=== PATIENT | male | born 1950 | race African-American/Black ===

== ENCOUNTER 2021-09-06 13:35 | Inpatient (IN) | payer MEDICARE, MEDICAID ==
[~2021-09-06] VITALS: Ht 182.9 cm; Wt 72.1 kg
[2021-09-06] MEDS ORDERED: SODIUM CHLORIDE 0.9% 1,000 ML IV ONE (15:15)
[2021-09-06 15:44] LABS: HEMATOCRIT. 44.7 % (42.0-52.0); HEMOGLOBIN. 14.7 g/dL (14.0-18.0); MEAN CORPUSCULAR HEMOGLOBIN 29.4 pg (28.0-32.0); MEAN CORPUSCULAR VOLUME 89.6 fL (80.0-94.0); MEAN PLATELET VOLUME 7.4 fl (7.4-10.4); PLATELET 352 x1000/uL (130-400); RED BLOOD CELL COUNT 4.99 mill/uL (4.7-6.1)
[2021-09-06 15:54] LABS: CHLORIDE 106 mEq/L (98-107)
[2021-09-06 16:49] LABS: PLATELET ESTIMATE NORMAL
[2021-09-06] MEDS ORDERED: FUROSEMIDE 20MG TABLET PO ONE (17:15)
[2021-09-06 21:36] VITALS: BP 146/86
[2021-09-06 22:00] VITALS: BP 146/86
[2021-09-06] MEDS ORDERED: MORP15TA54 MT (22:19)
[2021-09-06] MEDS ORDERED: GABA-529 PO (22:19)
[2021-09-06] MEDS ORDERED: HYDROCODONE/ACETAMINOPHEN 5/325MG TABLET PO PRN (22:45)
[2021-09-06] MEDS ORDERED: ONDANSETRON HCL 4MG/2ML INJ IV PRN (22:45)
[2021-09-06] MEDS ORDERED: ZOLPIDEM TARTRATE 5MG TABLET PO PRN (22:45)
[2021-09-06] MEDS ORDERED: CLONIDINE 0.1MG TABLET PO PRN (22:45)
[2021-09-06] MEDS ORDERED: PNEUMOCOCCAL 23-VAL P-SAC VAC 0.5 ML IM ONE (23:30)
[2021-09-07] VITALS (14 sets, daily range): BP systolic 125–168; BP diastolic 69–101
[2021-09-07 02:04] LABS: ETHANOL BLOOD < 10 mg/dL
[2021-09-07 02:21] LABS: CREATINE KINASE 2359 IU/L (39-308)
[2021-09-07 08:26] LABS: HEMATOCRIT. 41.7 % (42.0-52.0); HEMOGLOBIN. 13.8 g/dL (14.0-18.0); MEAN CORPUSCULAR VOLUME 90.2 fL (80.0-94.0); MEAN PLATELET VOLUME 7.6 fl (7.4-10.4); PLATELET 317 x1000/uL (130-400); RED BLOOD CELL COUNT 4.62 mill/uL (4.7-6.1); RED CELL DISTRIBUTION WIDTH 15.2 % (11.6-14.6)
[2021-09-07] MEDS: ENOXAPARIN 40MG/0.4ML SYR SUBCUT SCH (08:31)
[2021-09-07] MEDS ORDERED: GABAPENTIN 100MG CAPSULE PO SCH (09:00)
[2021-09-07 09:09] LABS: CHLORIDE 107 mEq/L (98-107)
[2021-09-07 09:17] LABS: LDL CHOLESTEROL 50 mg/dL (5-100)
[2021-09-07 09:18] LABS: CREATINE KINASE MB FRACTION 11.4 ng/mL (0.5-3.6); HDL CHOLESTEROL 58 mg/dL (40-59)
[2021-09-07 09:30] LABS: CLARITY URINE CLEAR (CLEAR); COLOR URINE DARK YELLOW (YELLOW); KETONES URINE 2+ (NEGATIVE); LEUKOCYTE ESTERASE URINE NEGATIVE (NEGATIVE); NITRITE URINE NEGATIVE (NEGATIVE); OCCULT BLOOD URINE NEGATIVE (NEGATIVE); PROTEIN URINE NEGATIVE (NEGATIVE); SPECIFIC GRAVITY URINE 1.025 (1.005-1.030)
[2021-09-07 09:37] LABS: CREATINE KINASE 1847 IU/L (39-308)
[2021-09-07 10:10] LABS: *AMPHETAMINES SCREEN URINE NEGATIVE (NEGATIVE); *BARBITURATES SCREEN URINE NEGATIVE (NEGATIVE); *BENZODIAZEPINES SCREEN URINE NEGATIVE (NEGATIVE); *COCAINE SCREEN URINE NEGATIVE (NEGATIVE); METHADONE URINE SCREEN NEGATIVE (NEGATIVE); OPIATES URINE SCREEN PRESUMTIVE POSITIVE (NEGATIVE)
[2021-09-07 10:11] LABS: CANNABINOID URINE SCREEN NEGATIVE (NEGATIVE); PHENCYCLIDINE URINE SCREEN NEGATIVE (NEGATIVE)
[2021-09-07] MEDS: GABAPENTIN 300MG CAPSULE PO SCH ×2 (13:39→21:17)
[2021-09-07] MEDS ORDERED: NALOXONE HCL 0.4 MG/ML 1ML VIAL IV PRN (14:00)
[2021-09-07 17:27] LABS: CREATINE KINASE MB FRACTION 7.6 ng/mL (0.5-3.6)
[2021-09-07 17:38] LABS: CREATINE KINASE 1380 IU/L (39-308)
[2021-09-07] MEDS: SODIUM CHLORIDE 0.9% 1,000 ML IV SCH ×2 (17:41→23:45)
[2021-09-07] MEDS: MORPHINE SULFATE 15MG TABLET SR PO SCH (21:24)
[2021-09-07 23:28] LABS: PLATELET ESTIMATE NORMAL
[2021-09-08] VITALS (7 sets, daily range): BP systolic 106–163; BP diastolic 57–83
[2021-09-08] MEDS: GABAPENTIN 300MG CAPSULE PO SCH ×3 (05:40→21:36)
[2021-09-08 07:17] LABS: BASOPHILS % 0.6 % (0.0-2.0); EOSINOPHILS % 0.8 % (0.0-5.0); HEMOGLOBIN. 13.6 g/dL (14.0-18.0); LYMPHOCYTES % 10.3 % (20.0-50.0); MEAN CORPUSCULAR HEMOGLOBIN 30.5 pg (28.0-32.0); MEAN CORPUSCULAR VOLUME 89.8 fL (80.0-94.0); MEAN PLATELET VOLUME 7.7 fl (7.4-10.4); MONOCYTES % 9.2 % (2.0-8.0); NEUTROPHILS % 79.1 % (40.0-76.0); PLATELET 308 x1000/uL (130-400); RED BLOOD CELL COUNT 4.46 mill/uL (4.7-6.1)
[2021-09-08 07:29] LABS: CHLORIDE 108 mEq/L (98-107)
[2021-09-08] MEDS: ENOXAPARIN 40MG/0.4ML SYR SUBCUT SCH (08:48)
[2021-09-08] MEDS: MORPHINE SULFATE 15MG TABLET SR PO SCH ×2 (08:48→21:35)
[2021-09-08] MEDS: SODIUM CHLORIDE 0.9% 1,000 ML IV SCH ×2 (08:49→19:45)
[2021-09-09] VITALS: BP 139/79
[2021-09-09 03:56] VITALS: BP 133/81
[2021-09-09] MEDS: GABAPENTIN 300MG CAPSULE PO SCH ×3 (05:05→21:07)
[2021-09-09] MEDS: SODIUM CHLORIDE 0.9% 1,000 ML IV SCH ×3 (05:45→23:57)
[2021-09-09 08:24] VITALS: BP 144/94
[2021-09-09] MEDS: ENOXAPARIN 40MG/0.4ML SYR SUBCUT SCH (09:11)
[2021-09-09] MEDS: MORPHINE SULFATE 15MG TABLET SR PO SCH ×2 (09:12→21:07)
[2021-09-09 12:00] VITALS: BP 147/82
[2021-09-09 16:34] VITALS: BP 142/78
[2021-09-09 20:00] VITALS: BP 152/86
[2021-09-09 20:38] LABS: INR 1.1; PROTHROMBIN TIME 11.9 sec (9.6-11.0)
[2021-09-09] MEDS: DEXAMETHASONE 4MG/ML 1ML VIAL IV SCH (23:27)
[2021-09-10] VITALS (11 sets, daily range): BP systolic 124–150; BP diastolic 67–90
[2021-09-10] MEDS: GABAPENTIN 300MG CAPSULE PO SCH ×3 (05:27→21:34)
[2021-09-10] MEDS: DEXAMETHASONE 4MG/ML 1ML VIAL IV SCH ×3 (05:27→18:16)
[2021-09-10] MEDS: MORPHINE SULFATE 15MG TABLET SR PO SCH ×3 (09:23→21:36)
[2021-09-10] MEDS ORDERED: HYDROCODONE/ACETAMINOPHEN 10/325MG TABLET PO PRN (09:30)
[2021-09-10] MEDS: ENOXAPARIN 40MG/0.4ML SYR SUBCUT SCH (10:35)
[2021-09-10] MEDS: SODIUM CHLORIDE 0.9% 1,000 ML IV SCH ×2 (11:34→21:36)
[2021-09-10] MEDS ORDERED: IPRATROPIUM/ALBUTEROL 0.5-3(2.5)MG/3ML NEB HHN PRN (14:30)
[2021-09-10] MEDS ORDERED: GADOTERATE MEGLUMINE 5 MMOL/10 ML VIAL IV ONE (17:19)
[2021-09-11] VITALS (53 sets, daily range): BP systolic 97–168; BP diastolic 44–74
[2021-09-11] MEDS: DEXAMETHASONE 4MG/ML 1ML VIAL IV SCH ×4 (00:37→17:39)
[2021-09-11] MEDS: GABAPENTIN 300MG CAPSULE PO SCH ×3 (05:40→22:00)
[2021-09-11] MEDS ORDERED: LIDOCAINE HCL/EPINEPHRINE 1%-EPI 1:100,000 20 ML VIAL ONE (05:56)
[2021-09-11] MEDS ORDERED: THROMBIN (BOVINE) 5000 UNITS/VIAL TOP ONE (05:57)
[2021-09-11] MEDS ORDERED: GENTAMICIN SULF 40MG/ML 2ML VIAL ONE (06:23)
[2021-09-11] MEDS ORDERED: PROPOFOL 10MG/ML 100ML 100 ML IV ONE (06:55)
[2021-09-11] MEDS ORDERED: ALBUMIN HUMAN 12.5G/250ML (5%) IV ONE (06:55)
[2021-09-11] MEDS ORDERED: NICARDIPINE 40MG/200ML PREMIX 200 ML IV ONE ×2 (06:56→06:57)
[2021-09-11] MEDS ORDERED: ACETAMINOPHEN 500MG TABLET ONE (07:03)
[2021-09-11] MEDS ORDERED: STERILE WATER FOR INJECTION 10ML VIAL ONE (07:27)
[2021-09-11] MEDS ORDERED: PHENYLEPHRINE HCL 10 MG/ML 1ML (IV VIAL) IV ONE (07:27)
[2021-09-11] MEDS ORDERED: MORPHINE SULFATE 2 MG/ML CPJ (NOT FOR IM USE) IV PRN (07:30)
[2021-09-11] MEDS ORDERED: FENTANYL CITRATE/PF 50MCG/ML 2ML VIAL ONE (07:33)
[2021-09-11] MEDS ORDERED: MAGNESIUM SULFATE 5GM/10ML VIAL IV ONE (07:43)
[2021-09-11] MEDS ORDERED: MAGNESIUM 2 G PREMIX 50 ML IV ONE (07:45)
[2021-09-11] MEDS ORDERED: CEFAZOLIN SODIUM 1000MG/VIAL ONE (07:58)
[2021-09-11] MEDS ORDERED: KETAMINE HCL 50 MG/ML 10ML ONE (08:12)
[2021-09-11] MEDS ORDERED: EPHEDRINE SULFATE 50MG/ML VIAL ONE (08:24)
[2021-09-11] MEDS ORDERED: HYDRALAZINE 20MG/ML VIAL ONE (08:42)
[2021-09-11] MEDS: MORPHINE SULFATE 15MG TABLET SR PO SCH ×2 (09:00→20:59)
[2021-09-11] MEDS ORDERED: ONDANSETRON HCL 4MG/2ML INJ ONE (09:06)
[2021-09-11] MEDS ORDERED: METOCLOPRAMIDE HCL 10MG/2ML VIAL ONE (09:06)
[2021-09-11] MEDS ORDERED: DEXAMETHASONE 4MG/ML 1ML VIAL ONE (09:13)
[2021-09-11] MEDS ORDERED: GLYCOPYRROLATE 0.2 MG/ML 2ML VIAL ONE (09:21)
[2021-09-11] MEDS ORDERED: NEOSTIGMINE METHYLSULFATE 1MG/ML 10 ML VIAL ONE (09:22)
[2021-09-11] MEDS: NICARDIPINE 100 MG in SODIUM CHLORIDE 0.9% 60 ML IV PRN ×2 (10:15→21:39)
[2021-09-11] MEDS: DEXT 5%/LACTATED RINGERS 1,000 ML IV SCH ×2 (10:16→17:39)
[2021-09-11] MEDS ORDERED: NALOXONE INJ IV PRN (10:45)
[2021-09-11] MEDS ORDERED: DIPHENHYDRAMINE INJ IV PRN (10:45)
[2021-09-11] MEDS ORDERED: ONDANSETRON INJ IV PRN (10:45)
[2021-09-11] MEDS ORDERED: HYDROMORPHONE PCA 10MG/50ML IV PRN (10:45)
[2021-09-11] MEDS: CEFAZOLIN 1000MG PREMIX 50 ML IV SCH ×2 (13:07→21:39)
[2021-09-11] MEDS ORDERED: CEFAZOLIN SODIUM 1000MG/VIAL IV SCH (14:00)
[2021-09-11] MEDS: THROAT LOZENGES-BENZOCAINE/MENTH/CETYLPYRD CL LOZENGES MM PRN (14:21)
[2021-09-11 15:11] LABS: HEMATOCRIT. 39.3 % (42.0-52.0); HEMOGLOBIN. 12.7 g/dL (14.0-18.0); MEAN CORPUSCULAR HEMOGLOBIN 28.8 pg (28.0-32.0); MEAN CORPUSCULAR VOLUME 89.4 fL (80.0-94.0); MEAN PLATELET VOLUME 7.6 fl (7.4-10.4); PLATELET 346 x1000/uL (130-400); RED CELL DISTRIBUTION WIDTH 15.1 % (11.6-14.6)
[2021-09-11 15:24] LABS: CHLORIDE 108 mEq/L (98-107)
[2021-09-11 15:58] LABS: PLATELET ESTIMATE NORMAL
[2021-09-12] VITALS (90 sets, daily range): BP systolic 95–154; BP diastolic 51–82
[2021-09-12] MEDS: DEXAMETHASONE 4MG/ML 1ML VIAL IV SCH ×3 (01:16→11:01)
[2021-09-12] MEDS: THROAT LOZENGES-BENZOCAINE/MENTH/CETYLPYRD CL LOZENGES MM PRN ×3 (01:19→13:07)
[2021-09-12] MEDS: DEXT 5%/LACTATED RINGERS 1,000 ML IV SCH ×3 (04:20→22:45)
[2021-09-12] MEDS: GABAPENTIN 300MG CAPSULE PO SCH ×3 (06:00→21:23)
[2021-09-12] MEDS: CEFAZOLIN 1000MG PREMIX 50 ML IV SCH ×3 (06:08→21:23)
[2021-09-12] MEDS: AMLODIPINE 10MG TABLET PO SCH (08:46)
[2021-09-12] MEDS: MORPHINE SULFATE 15MG TABLET SR PO SCH ×2 (08:47→21:24)
[2021-09-12] MEDS: MORPHINE SULFATE 2 MG/ML CPJ (NOT FOR IM USE) IV PRN ×3 (09:20→18:58)
[2021-09-12] MEDS: HYDRALAZINE HCL 25MG TABLET PO SCH ×2 (11:01→18:58)
[2021-09-13] VITALS (36 sets, daily range): BP systolic 0–178; BP diastolic 0–88
[2021-09-13] MEDS: MORPHINE SULFATE 2 MG/ML CPJ (NOT FOR IM USE) IV PRN (01:11)
[2021-09-13] MEDS: HYDRALAZINE HCL 25MG TABLET PO SCH ×3 (02:33→17:23)
[2021-09-13] MEDS: CEFAZOLIN 1000MG PREMIX 50 ML IV SCH ×3 (06:13→21:19)
[2021-09-13] MEDS: GABAPENTIN 300MG CAPSULE PO SCH ×3 (06:13→21:17)
[2021-09-13] MEDS: THROAT LOZENGES-BENZOCAINE/MENTH/CETYLPYRD CL LOZENGES MM PRN ×2 (07:04→16:46)
[2021-09-13] MEDS: AMLODIPINE 10MG TABLET PO SCH (09:00)
[2021-09-13] MEDS: MORPHINE SULFATE 15MG TABLET SR PO SCH ×2 (09:35→21:18)
[2021-09-13] MEDS: DEXT 5%/LACTATED RINGERS 1,000 ML IV SCH ×2 (13:27→21:19)
[2021-09-13] MEDS ORDERED: NALOXONE HCL 0.4MG/ML VIAL IV PRN (16:15)
[2021-09-14] VITALS (7 sets, daily range): BP systolic 102–131; BP diastolic 56–72
[2021-09-14] MEDS: HYDRALAZINE HCL 25MG TABLET PO SCH ×2 (01:57→11:05)
[2021-09-14] MEDS: MORPHINE SULFATE 2 MG/ML CPJ (NOT FOR IM USE) IV PRN ×2 (05:04→17:19)
[2021-09-14] MEDS: DEXT 5%/LACTATED RINGERS 1,000 ML IV SCH ×2 (05:29→16:27)
[2021-09-14] MEDS: CEFAZOLIN 1000MG PREMIX 50 ML IV SCH ×2 (05:29→14:38)
[2021-09-14] MEDS: GABAPENTIN 300MG CAPSULE PO SCH ×2 (05:53→14:38)
[2021-09-14 07:28] LABS: BASOPHILS % 0.4 % (0.0-2.0); EOSINOPHILS % 0.6 % (0.0-5.0); HEMOGLOBIN. 12.6 g/dL (14.0-18.0); LYMPHOCYTES % 10.2 % (20.0-50.0); MEAN CORPUSCULAR HEMOGLOBIN 29.4 pg (28.0-32.0); MEAN CORPUSCULAR VOLUME 88.8 fL (80.0-94.0); MEAN PLATELET VOLUME 8.1 fl (7.4-10.4); MONOCYTES % 8.2 % (2.0-8.0); NEUTROPHILS % 80.6 % (40.0-76.0); PLATELET 311 x1000/uL (130-400); RED BLOOD CELL COUNT 4.27 mill/uL (4.7-6.1); RED CELL DISTRIBUTION WIDTH 15.1 % (11.6-14.6)
[2021-09-14 07:35] LABS: CHLORIDE 107 mEq/L (98-107)
[2021-09-14] MEDS: AMLODIPINE 10MG TABLET PO SCH (08:36)
[2021-09-14] MEDS: MORPHINE SULFATE 15MG TABLET SR PO SCH (08:37)
[2021-09-14] MEDS: THROAT LOZENGES-BENZOCAINE/MENTH/CETYLPYRD CL LOZENGES MM PRN (11:06)
[2021-09-14] MEDS ORDERED: GABA-290 PO (22:29)
[2021-09-14] MEDS ORDERED: MORP60TA6 PO (22:29)
== END 2021-09-14 18:17 | DRG 471 ==
LOC: ER 13:47 → 5EST 17:41 → ENRESERV 19:59 → MICUSO 09-11 10:04 → 7EST 09-13 12:44
PROVIDERS: ADMIT Internal Medicine; ATTEND Internal Medicine
PROC: 0RG10A0 Fusion of Cervical Vertebral Joint with Interbody Fusion Device, Anterior Approach, Anterior Column, Open Approach (ICD-10-PCS; principal; 2021-09-06)
PROC: 0RB30ZZ Excision of Cervical Vertebral Disc, Open Approach (ICD-10-PCS; 2021-09-06)
PROC: 00NW0ZZ Release Cervical Spinal Cord, Open Approach (ICD-10-PCS; 2021-09-06)
DX: M48.02 Spinal stenosis, cervical region (principal); S14.104A Unspecified injury at C4 level of cervical spinal cord, initial encounter; G82.50 Quadriplegia, unspecified; I63.9 Cerebral infarction, unspecified; M62.82 Rhabdomyolysis; C34.91 Malignant neoplasm of unspecified part of right bronchus or lung; G95.20 Unspecified cord compression; S51.011A Laceration without foreign body of right elbow, initial encounter; T73.0XXA Starvation, initial encounter; D72.829 Elevated white blood cell count, unspecified; F41.9 Anxiety disorder, unspecified; M19.90 Unspecified osteoarthritis, unspecified site; R74.01 Elevation of levels of liver transaminase levels; I10 Essential (primary) hypertension; S70.02XA Contusion of left hip, initial encounter; R74.8 Abnormal levels of other serum enzymes; M48.061 Spinal stenosis, lumbar region without neurogenic claudication; R26.89 Other abnormalities of gait and mobility; G89.4 Chronic pain syndrome; R53.81 Other malaise; Z20.822 Contact with and (suspected) exposure to COVID-19; D64.9 Anemia, unspecified; M50.322 Other cervical disc degeneration at C5-C6 level; I16.0 Hypertensive urgency; R13.10 Dysphagia, unspecified; E80.6 Other disorders of bilirubin metabolism; G62.9 Polyneuropathy, unspecified; W18.39XA Other fall on same level, initial encounter; Y93.89 Activity, other specified; Y92.89 Other specified places as the place of occurrence of the external cause; Y99.8 Other external cause status; Z79.891 Long term (current) use of opiate analgesic; Z79.899 Other long term (current) drug therapy; Z92.21 Personal history of antineoplastic chemotherapy; Z82.49 Family history of ischemic heart disease and other diseases of the circulatory system
CPT/HCPCS: 36415; 70544; 70549; 70551; 70553; 71045; 72040; 72141; 72146; 72148; 76000; 80048; 80053; 80061; 80076; 80305; 80320; 81003; 82040; 82248; 82550; 82553; 82962; 83036; 83605; 83735; 83880; 84134; 84145; 84443; 84484; 85025; 86850; 86900; 87426; 88311; 90732; 92610; 93005; 93306; 93970; 95863; 95925; 95926; 95928; 95929; 97116; 97162; 97164; 97166; 97168; 97530; 99285; A4216; A6261; A9577; C1713; J0360; J0690; J1100; J1200; J1580; J1650; J2270; J2370; J2405; J2704; J2710; J2765; J3010; J3475; J3490; J7030; J7040; J7050; J7121; L0172; P9041; C1762; G0480

== ENCOUNTER 2021-09-14 18:26 | Inpatient (IN) | payer MEDICARE, MEDICAID ==
[~2021-09-14] VITALS: Ht 182.9 cm; Wt 56.2 kg
[~2021-09-14 18:26] MED LIST: GABA-529 PO; MORP15TA54 MT
[2021-09-14 19:26] VITALS: BP 135/69
[2021-09-14 19:30] VITALS: BP 111/70
[2021-09-14] MEDS ORDERED: MORPHINE SULFATE 2 MG/ML CPJ (NOT FOR IM USE) IV PRN (19:45)
[2021-09-14] MEDS ORDERED: IPRATROPIUM/ALBUTEROL 0.5-3(2.5)MG/3ML NEB HHN PRN (19:45)
[2021-09-14] MEDS ORDERED: CLONIDINE 0.1MG TABLET PO PRN (19:45)
[2021-09-14] MEDS ORDERED: NALOXONE HCL 0.4 MG/ML 1ML VIAL IV PRN (19:45)
[2021-09-14 20:00] VITALS: BP 111/70
[2021-09-14] MEDS ORDERED: CEFAZOLIN 1000MG PREMIX 50 ML IV SCH (21:00)
[2021-09-14] MEDS: HYDRALAZINE HCL 25MG TABLET PO SCH (21:25)
[2021-09-14] MEDS: GABAPENTIN 300MG CAPSULE PO SCH (21:25)
[2021-09-14] MEDS: CEFAZOLIN 1000MG PREMIX 50 ML IV SCH (21:26)
[2021-09-14] MEDS: MORPHINE SULFATE 15MG TABLET SR PO SCH (21:26)
[2021-09-14] MEDS: THROAT LOZENGES-BENZOCAINE/MENTH/CETYLPYRD CL LOZENGES MM PRN (22:12)
[2021-09-14] MEDS ORDERED: GABA-290 PO (22:29)
[2021-09-14] MEDS ORDERED: MORP60TA6 PO (22:29)
[2021-09-15] MEDS: GABAPENTIN 300MG CAPSULE PO SCH ×3 (05:46→21:38)
[2021-09-15] MEDS: CEFAZOLIN 1000MG PREMIX 50 ML IV SCH ×3 (05:46→21:19)
[2021-09-15] MEDS: HYDRALAZINE HCL 25MG TABLET PO SCH ×3 (05:47→21:38)
[2021-09-15 08:00] VITALS: BP 90/50
[2021-09-15] MEDS: AMLODIPINE 10MG TABLET PO SCH (08:40)
[2021-09-15] MEDS: MORPHINE SULFATE 15MG TABLET SR PO SCH ×3 (08:42→21:21)
[2021-09-15 10:28] LABS: BASOPHILS % 0.1 % (0.0-2.0); EOSINOPHILS % 4.2 % (0.0-5.0); HEMATOCRIT. 38.5 % (42.0-52.0); HEMOGLOBIN. 12.6 g/dL (14.0-18.0); LYMPHOCYTES % 12.8 % (20.0-50.0); MEAN CORPUSCULAR HEMOGLOBIN 29.4 pg (28.0-32.0); MEAN CORPUSCULAR VOLUME 90.2 fL (80.0-94.0); MEAN PLATELET VOLUME 7.2 fl (7.4-10.4); MONOCYTES % 10.5 % (2.0-8.0); NEUTROPHILS % 72.4 % (40.0-76.0); PLATELET 333 x1000/uL (130-400); RED BLOOD CELL COUNT 4.27 mill/uL (4.7-6.1); RED CELL DISTRIBUTION WIDTH 15.1 % (11.6-14.6)
[2021-09-15 10:46] LABS: CHLORIDE 105 mEq/L (98-107)
[2021-09-15 20:00] VITALS: BP 124/64
[2021-09-15] MEDS: THROAT LOZENGES-BENZOCAINE/MENTH/CETYLPYRD CL LOZENGES MM PRN (21:38)
[2021-09-16] MEDS: HYDROMORPHONE HCL 4MG TABLET PO PRN (04:21)
[2021-09-16] MEDS: HYDRALAZINE HCL 25MG TABLET PO SCH ×3 (05:35→21:42)
[2021-09-16] MEDS: GABAPENTIN 300MG CAPSULE PO SCH ×3 (05:36→21:42)
[2021-09-16] MEDS: CEFAZOLIN 1000MG PREMIX 50 ML IV SCH ×2 (05:36→21:42)
[2021-09-16] MEDS: THROAT LOZENGES-BENZOCAINE/MENTH/CETYLPYRD CL LOZENGES MM PRN ×2 (05:36→21:48)
[2021-09-16] MEDS ORDERED: NA PHOS,M-B/NA PHOS,DI-BA ENEMA 118ML PR PRN (07:45)
[2021-09-16 08:00] VITALS: BP 126/66
[2021-09-16] MEDS: BISACODYL 5MG TABLET PO SCH (08:43)
[2021-09-16] MEDS: AMLODIPINE 10MG TABLET PO SCH (08:44)
[2021-09-16] MEDS: MORPHINE SULFATE 15MG TABLET SR PO SCH ×2 (08:47→21:44)
[2021-09-16] MEDS: LACTULOSE 20G/30ML UDC PO SCH ×2 (09:48→13:27)
[2021-09-16] MEDS ORDERED: LACTULOSE 20G/30ML UDC PO SCH (12:00)
[2021-09-16 16:02] LABS: BASOPHILS % 0.3 % (0.0-2.0); EOSINOPHILS % 3.1 % (0.0-5.0); HEMATOCRIT. 40.6 % (42.0-52.0); HEMOGLOBIN. 13.4 g/dL (14.0-18.0); LYMPHOCYTES % 9.8 % (20.0-50.0); MEAN CORPUSCULAR HEMOGLOBIN 29.7 pg (28.0-32.0); MEAN CORPUSCULAR VOLUME 90.2 fL (80.0-94.0); MEAN PLATELET VOLUME 7.2 fl (7.4-10.4); MONOCYTES % 8.1 % (2.0-8.0); NEUTROPHILS % 78.7 % (40.0-76.0); PLATELET 346 x1000/uL (130-400); RED CELL DISTRIBUTION WIDTH 15.1 % (11.6-14.6)
[2021-09-16 16:32] LABS: CHLORIDE 104 mEq/L (98-107)
[2021-09-16 16:38] LABS: TOTAL IRON BINDING CAPACITY 253 ug/dL (250-450)
[2021-09-16 16:50] LABS: FOLIC ACID (FOLATE) SERUM 13.5 ng/mL (>5.38)
[2021-09-16] MEDS ORDERED: LACTULOSE 20G/30ML UDC PO PRN (17:00)
[2021-09-16 20:00] VITALS: BP 105/59
[2021-09-17] MEDS: HYDRALAZINE HCL 25MG TABLET PO SCH ×3 (06:00→21:08)
[2021-09-17 08:00] VITALS: BP 103/58
[2021-09-17] MEDS: AMLODIPINE 10MG TABLET PO SCH (09:00)
[2021-09-17] MEDS: BISACODYL 5MG TABLET PO SCH (09:00)
[2021-09-17] MEDS: HYDROMORPHONE HCL 4MG TABLET PO PRN (09:18)
[2021-09-17] MEDS: GABAPENTIN 300MG CAPSULE PO SCH ×3 (09:19→21:08)
[2021-09-17] MEDS: MORPHINE SULFATE 15MG TABLET SR PO SCH ×2 (09:20→21:08)
[2021-09-17 09:26] VITALS: BP 117/40
[2021-09-17 09:29] VITALS: BP 124/61
[2021-09-17 09:56] VITALS: BP 113/61
[2021-09-17] MEDS: THROAT LOZENGES-BENZOCAINE/MENTH/CETYLPYRD CL LOZENGES MM PRN (14:17)
[2021-09-17] MEDS: CYANOCOBALAMIN 1000MCG/ML VIAL IM SCH (15:44)
[2021-09-17 20:00] VITALS: BP 116/59
[2021-09-18] MEDS: THROAT LOZENGES-BENZOCAINE/MENTH/CETYLPYRD CL LOZENGES MM PRN (03:36)
[2021-09-18 05:16] VITALS: BP_SYST 94; BP_SYST 95; BP_DIAS 52; BP_DIAS 57
[2021-09-18] MEDS: GABAPENTIN 300MG CAPSULE PO SCH ×3 (05:16→22:20)
[2021-09-18] MEDS: HYDRALAZINE HCL 25MG TABLET PO SCH ×3 (05:16→22:21)
[2021-09-18 08:22] VITALS: BP 93/59
[2021-09-18] MEDS: AMLODIPINE 10MG TABLET PO SCH (09:00)
[2021-09-18] MEDS: BISACODYL 5MG TABLET PO SCH ×2 (09:00→09:39)
[2021-09-18] MEDS: CYANOCOBALAMIN 1000MCG/ML VIAL IM SCH (09:32)
[2021-09-18] MEDS: MORPHINE SULFATE 15MG TABLET SR PO SCH ×2 (09:34→22:30)
[2021-09-18 20:00] VITALS: BP 115/55
[2021-09-19] MEDS: HYDRALAZINE HCL 25MG TABLET PO SCH ×3 (06:00→21:11)
[2021-09-19] MEDS: GABAPENTIN 300MG CAPSULE PO SCH ×3 (06:54→21:14)
[2021-09-19 08:22] VITALS: BP 104/57
[2021-09-19] MEDS: AMLODIPINE 10MG TABLET PO SCH (09:00)
[2021-09-19] MEDS: BISACODYL 5MG TABLET PO SCH (09:00)
[2021-09-19] MEDS: MORPHINE SULFATE 15MG TABLET SR PO SCH (09:32)
[2021-09-19] MEDS: CYANOCOBALAMIN 1000MCG/ML VIAL IM SCH (09:32)
[2021-09-19] MEDS: HYDROMORPHONE HCL 4MG TABLET PO PRN (14:49)
[2021-09-19 20:00] VITALS: BP_SYST 104; BP_SYST 110; BP_DIAS 57; BP_DIAS 60
[2021-09-19] MEDS: MORPHINE SULFATE 30MG TABLET SR PO SCH (21:14)
[2021-09-20] MEDS: HYDROMORPHONE HCL 4MG TABLET PO PRN ×2 (02:35→12:50)
[2021-09-20] MEDS: HYDRALAZINE HCL 25MG TABLET PO SCH ×3 (06:00→21:04)
[2021-09-20] MEDS: GABAPENTIN 300MG CAPSULE PO SCH ×3 (06:44→21:04)
[2021-09-20 07:00] VITALS: BP_SYST 105; BP_SYST 90; BP_DIAS 55; BP_DIAS 71
[2021-09-20 08:00] VITALS: BP 90/85
[2021-09-20] MEDS: CYANOCOBALAMIN 1000MCG/ML VIAL IM SCH (08:28)
[2021-09-20] MEDS: MORPHINE SULFATE 30MG TABLET SR PO SCH ×2 (08:28→21:03)
[2021-09-20] MEDS: POLYETHYLENE GLYCOL 3350 (17GM) 1 DOSE PACK PO SCH (08:34)
[2021-09-20] MEDS: AMLODIPINE 10MG TABLET PO SCH (09:00)
[2021-09-20 20:00] VITALS: BP 97/91
[2021-09-21] MEDS: HYDRALAZINE HCL 25MG TABLET PO SCH ×3 (06:00→21:28)
[2021-09-21] MEDS: GABAPENTIN 300MG CAPSULE PO SCH ×3 (06:57→21:28)
[2021-09-21 08:00] VITALS: BP 124/63
[2021-09-21] MEDS: POLYETHYLENE GLYCOL 3350 (17GM) 1 DOSE PACK PO SCH (08:50)
[2021-09-21] MEDS: MORPHINE SULFATE 30MG TABLET SR PO SCH ×2 (08:52→20:27)
[2021-09-21] MEDS: CYANOCOBALAMIN 1000MCG/ML VIAL IM SCH (08:53)
[2021-09-21] MEDS: AMLODIPINE 10MG TABLET PO SCH (08:54)
[2021-09-21 20:00] VITALS: BP_SYST 88; BP_SYST 95; BP_DIAS 54; BP_DIAS 57
[2021-09-22] MEDS: GABAPENTIN 300MG CAPSULE PO SCH ×3 (05:14→22:00)
[2021-09-22] MEDS: HYDRALAZINE HCL 25MG TABLET PO SCH ×3 (05:14→22:00)
[2021-09-22 07:24] LABS: BASOPHILS % 0.5 % (0.0-2.0); EOSINOPHILS % 2.9 % (0.0-5.0); HEMATOCRIT. 38.9 % (42.0-52.0); HEMOGLOBIN. 13.1 g/dL (14.0-18.0); MEAN CORPUSCULAR HEMOGLOBIN 30.5 pg (28.0-32.0); MEAN CORPUSCULAR VOLUME 90.8 fL (80.0-94.0); MEAN PLATELET VOLUME 7.4 fl (7.4-10.4); MONOCYTES % 12.2 % (2.0-8.0); NEUTROPHILS % 71.4 % (40.0-76.0); PLATELET 333 x1000/uL (130-400); RED BLOOD CELL COUNT 4.29 mill/uL (4.7-6.1); RED CELL DISTRIBUTION WIDTH 15.4 % (11.6-14.6)
[2021-09-22 07:48] LABS: CHLORIDE 105 mEq/L (98-107)
[2021-09-22 08:00] VITALS: BP 112/71
[2021-09-22] MEDS: POLYETHYLENE GLYCOL 3350 (17GM) 1 DOSE PACK PO SCH (08:41)
[2021-09-22] MEDS: MORPHINE SULFATE 30MG TABLET SR PO SCH ×2 (08:42→20:36)
[2021-09-22] MEDS: AMLODIPINE 10MG TABLET PO SCH (08:43)
[2021-09-22] MEDS: HYDROMORPHONE HCL 4MG TABLET PO PRN (17:21)
[2021-09-22 20:00] VITALS: BP 101/67
[2021-09-23] MEDS: HYDROMORPHONE HCL 4MG TABLET PO PRN ×2 (01:25→13:24)
[2021-09-23] MEDS: HYDRALAZINE HCL 25MG TABLET PO SCH ×3 (05:38→21:21)
[2021-09-23] MEDS: GABAPENTIN 300MG CAPSULE PO SCH ×3 (05:38→21:22)
[2021-09-23 08:00] VITALS: BP 94/51
[2021-09-23] MEDS: MORPHINE SULFATE 30MG TABLET SR PO SCH ×2 (08:45→21:22)
[2021-09-23] MEDS: POLYETHYLENE GLYCOL 3350 (17GM) 1 DOSE PACK PO SCH (08:47)
[2021-09-23] MEDS: AMLODIPINE 10MG TABLET PO SCH (08:47)
[2021-09-23] MEDS ORDERED: NALOXONE HCL 0.4MG/ML VIAL IV PRN (13:45)
[2021-09-23 19:08] LABS: 25-HYDROXY VITAMIN D3 12 ng/mL (.)
[2021-09-23 20:00] VITALS: BP 107/57
[2021-09-24] MEDS: GABAPENTIN 300MG CAPSULE PO SCH ×3 (05:49→21:29)
[2021-09-24] MEDS: HYDRALAZINE HCL 25MG TABLET PO SCH ×3 (05:50→21:32)
[2021-09-24] MEDS: HYDROMORPHONE HCL 4MG TABLET PO PRN (07:13)
[2021-09-24 08:00] VITALS: BP 93/62
[2021-09-24] MEDS: AMLODIPINE 10MG TABLET PO SCH (09:00)
[2021-09-24] MEDS: POLYETHYLENE GLYCOL 3350 (17GM) 1 DOSE PACK PO SCH (09:00)
[2021-09-24] MEDS: MORPHINE SULFATE 30MG TABLET SR PO SCH (09:00)
[2021-09-24] MEDS ORDERED: HYDROMORPHONE HCL 4MG TABLET PO PRN (09:15)
[2021-09-24 20:00] VITALS: BP 118/65
[2021-09-24] MEDS ORDERED: MORPHINE SULFATE 30MG TABLET SR PO SCH (21:00)
[2021-09-24] MEDS: MORPHINE SULFATE 15MG TABLET SR PO SCH (21:43)
[2021-09-25] MEDS: HYDRALAZINE HCL 25MG TABLET PO SCH (07:17)
[2021-09-25] MEDS: GABAPENTIN 300MG CAPSULE PO SCH ×3 (07:17→22:19)
[2021-09-25 08:00] VITALS: BP 138/76
[2021-09-25] MEDS: POLYETHYLENE GLYCOL 3350 (17GM) 1 DOSE PACK PO SCH (09:00)
[2021-09-25] MEDS ORDERED: ERGOCALCIFEROL 50000UNITS CAPSULE PO SCH (09:00)
[2021-09-25] MEDS: AMLODIPINE 10MG TABLET PO SCH (09:00)
[2021-09-25] MEDS: MORPHINE SULFATE 15MG TABLET SR PO SCH ×2 (09:54→22:32)
[2021-09-25 20:00] VITALS: BP 100/53
[2021-09-26] MEDS: GABAPENTIN 300MG CAPSULE PO SCH ×3 (06:30→21:14)
[2021-09-26 07:15] LABS: BASOPHILS % 0.9 % (0.0-2.0); EOSINOPHILS % 3.2 % (0.0-5.0); HEMATOCRIT. 35.9 % (42.0-52.0); HEMOGLOBIN. 12.2 g/dL (14.0-18.0); LYMPHOCYTES % 14.8 % (20.0-50.0); MEAN CORPUSCULAR HEMOGLOBIN 30.4 pg (28.0-32.0); MEAN CORPUSCULAR VOLUME 89.6 fL (80.0-94.0); MEAN PLATELET VOLUME 7.6 fl (7.4-10.4); MONOCYTES % 7.6 % (2.0-8.0); NEUTROPHILS % 73.5 % (40.0-76.0); PLATELET 287 x1000/uL (130-400); RED BLOOD CELL COUNT 4.01 mill/uL (4.7-6.1); RED CELL DISTRIBUTION WIDTH 15.3 % (11.6-14.6)
[2021-09-26 07:54] LABS: CHLORIDE 106 mEq/L (98-107)
[2021-09-26 08:00] VITALS: BP 106/69
[2021-09-26] MEDS: POLYETHYLENE GLYCOL 3350 (17GM) 1 DOSE PACK PO SCH (09:00)
[2021-09-26] MEDS: MORPHINE SULFATE 15MG TABLET SR PO SCH ×2 (10:20→20:46)
[2021-09-26 20:00] VITALS: BP 126/65
[2021-09-27] MEDS: GABAPENTIN 300MG CAPSULE PO SCH (05:50)
[2021-09-27 08:20] VITALS: BP 101/57
[2021-09-27] MEDS: POLYETHYLENE GLYCOL 3350 (17GM) 1 DOSE PACK PO SCH (09:00)
[2021-09-27] MEDS: MORPHINE SULFATE 15MG TABLET SR PO SCH (09:32)
[2021-09-27] MEDS ORDERED: MSCON15 PO (12:46)
[2021-09-27] MEDS ORDERED: GABA-532 PO (12:46)
[2021-09-27 14:41] VITALS: BP 133/58
== END 2021-09-27 15:32 | disposition home health service (06) | DRG 64 ==
PROVIDERS: ADMIT Physical Medicine & Rehabilitation Spinal Cord Injury Medicine; ATTEND Internal Medicine
DX: I63.9 Cerebral infarction, unspecified (principal); G82.50 Quadriplegia, unspecified; M62.82 Rhabdomyolysis; M50.01 Cervical disc disorder with myelopathy, high cervical region; D64.9 Anemia, unspecified; D72.829 Elevated white blood cell count, unspecified; E86.9 Volume depletion, unspecified; G89.4 Chronic pain syndrome; I10 Essential (primary) hypertension; M48.02 Spinal stenosis, cervical region; M48.061 Spinal stenosis, lumbar region without neurogenic claudication; R13.10 Dysphagia, unspecified; T73.0XXA Starvation, initial encounter; R53.81 Other malaise; E53.8 Deficiency of other specified B group vitamins; E55.9 Vitamin D deficiency, unspecified; S70.02XA Contusion of left hip, initial encounter; X58.XXXA Exposure to other specified factors, initial encounter; S50.311A Abrasion of right elbow, initial encounter; R26.89 Other abnormalities of gait and mobility; M62.81 Muscle weakness (generalized); Z79.891 Long term (current) use of opiate analgesic; Z82.49 Family history of ischemic heart disease and other diseases of the circulatory system; Z85.118 Personal history of other malignant neoplasm of bronchus and lung; Z92.21 Personal history of antineoplastic chemotherapy; Y93.89 Activity, other specified; Y92.89 Other specified places as the place of occurrence of the external cause; Y99.8 Other external cause status
CPT/HCPCS: 36415; 80048; 80053; 82040; 82306; 82607; 82728; 82746; 83540; 83550; 84134; 84443; 85025; 92523; 92610; 93970; 97110; 97112; 97116; 97162; 97166; 97530; 97535; C1893; J0690; J2270; J3420; J7040

== ENCOUNTER 2021-10-13 17:14 | Inpatient (IN) | payer MEDICARE, MEDICAID ==
[~2021-10-13] VITALS: Ht 182.9 cm; Wt 66.2 kg
[~2021-10-13 17:14] MED LIST changes: -GABA-529 PO; +GABA-532 PO; -MORP15TA54 MT; +MSCON15 PO
[2021-10-13] MEDS ORDERED: MORPHINE SULFATE 4 MG/ML CPJ (NOT FOR IM USE) IV STA (18:11)
[2021-10-13] MEDS ORDERED: ONDANSETRON HCL 4MG/2ML INJ IV STA (18:11)
[2021-10-13] MEDS ORDERED: SODIUM CHLORIDE 0.9% 1,000 ML IV ONE (18:15)
[2021-10-13 18:43] LABS: HEMATOCRIT. 38.4 % (42.0-52.0); HEMOGLOBIN. 12.7 g/dL (14.0-18.0); MEAN CORPUSCULAR HEMOGLOBIN 29.4 pg (28.0-32.0); MEAN CORPUSCULAR VOLUME 88.5 fL (80.0-94.0); MEAN PLATELET VOLUME 7.3 fl (7.4-10.4); PLATELET 316 x1000/uL (130-400); RED BLOOD CELL COUNT 4.34 mill/uL (4.7-6.1); RED CELL DISTRIBUTION WIDTH 15.3 % (11.6-14.6)
[2021-10-13 18:46] LABS: CHLORIDE 104 mEq/L (98-107)
[2021-10-13 18:57] LABS: INR 1.1; PARTIAL THROMBOPLASTIN TIME 36.5 sec (23.4-31.0); PROTHROMBIN TIME 12.1 sec (9.6-11.0)
[2021-10-13 19:06] LABS: CREATINE KINASE 2053 IU/L (39-308)
[2021-10-13 21:43] LABS: PLATELET ESTIMATE NORMAL
[2021-10-14 00:06] LABS: CLARITY URINE CLEAR (CLEAR); COLOR URINE DARK YELLOW (YELLOW); KETONES URINE 1+ (NEGATIVE); LEUKOCYTE ESTERASE URINE NEGATIVE (NEGATIVE); NITRITE URINE NEGATIVE (NEGATIVE); OCCULT BLOOD URINE NEGATIVE (NEGATIVE); PH URINE 6.5 (4.5-8.0); PROTEIN URINE TRACE (NEGATIVE); SPECIFIC GRAVITY URINE 1.022 (1.005-1.030)
[2021-10-14] MEDS ORDERED: GUAIFENESIN 200MG/10ML SUGAR FREE UDC PO PRN (06:15)
[2021-10-14] MEDS ORDERED: ACETAMINOPHEN 325MG TABLET PO PRN (06:15)
[2021-10-14] MEDS ORDERED: CLONIDINE 0.1MG TABLET PO PRN (06:15)
[2021-10-14] MEDS ORDERED: HYDROCODONE/ACETAMINOPHEN 5/325MG TABLET PO PRN (06:15)
[2021-10-14] MEDS ORDERED: ONDANSETRON HCL 4MG/2ML INJ IV PRN (06:15)
[2021-10-14] MEDS ORDERED: NALOXONE HCL 0.4MG/ML VIAL IV PRN (06:45)
[2021-10-14] MEDS: ENOXAPARIN 40MG/0.4ML SYR SUBCUT SCH (08:00)
[2021-10-14] MEDS ORDERED: DOCUSATE SODIUM 100MG CAPSULE PO PRN (09:00)
[2021-10-14] MEDS ORDERED: MAGNESIUM/ALUMINUM HYDROXIDE/SIMETHICONE 30ML UDC PO PRN (09:00)
[2021-10-14] MEDS: AMLODIPINE 10MG TABLET PO SCH (09:09)
[2021-10-14] MEDS: HYDROMORPHONE HCL/PF 2MG/ML CPJ IV PRN ×3 (10:12→22:06)
[2021-10-14] MEDS: MORPHINE SULFATE 15MG TABLET SR PO SCH (22:00)
[2021-10-15 06:14] VITALS: BP 134/81
[2021-10-15 08:06] VITALS: BP 138/76
[2021-10-15 08:20] VITALS: BP 134/81
[2021-10-15] MEDS: ENOXAPARIN 40MG/0.4ML SYR SUBCUT SCH (09:06)
[2021-10-15] MEDS: MORPHINE SULFATE 15MG TABLET SR PO SCH ×2 (09:06→20:57)
[2021-10-15] MEDS: AMLODIPINE 10MG TABLET PO SCH (09:07)
[2021-10-15 09:38] LABS: HEMATOCRIT. 39.2 % (42.0-52.0); HEMOGLOBIN. 13.1 g/dL (14.0-18.0); MEAN CORPUSCULAR HEMOGLOBIN 30.1 pg (28.0-32.0); MEAN CORPUSCULAR VOLUME 90.2 fL (80.0-94.0); MEAN PLATELET VOLUME 7.3 fl (7.4-10.4); PLATELET 297 x1000/uL (130-400); RED BLOOD CELL COUNT 4.35 mill/uL (4.7-6.1); RED CELL DISTRIBUTION WIDTH 15.4 % (11.6-14.6)
[2021-10-15 09:46] LABS: CHLORIDE 105 mEq/L (98-107)
[2021-10-15 12:03] VITALS: BP 127/69
[2021-10-15 13:26] LABS: PLATELET ESTIMATE NORMAL
[2021-10-15 17:43] VITALS: BP 136/78
[2021-10-15 20:00] VITALS: BP 135/76
[2021-10-16] VITALS (8 sets, daily range): BP systolic 126–142; BP diastolic 69–85
[2021-10-16] MEDS: HYDROMORPHONE HCL/PF 2MG/ML CPJ IV PRN ×3 (04:39→19:11)
[2021-10-16] MEDS: ENOXAPARIN 40MG/0.4ML SYR SUBCUT SCH (07:50)
[2021-10-16] MEDS: AMLODIPINE 10MG TABLET PO SCH (10:11)
[2021-10-16] MEDS: MORPHINE SULFATE 15MG TABLET SR PO SCH ×2 (10:12→20:57)
[2021-10-16 16:10] LABS: CREATINE KINASE 251 IU/L (39-308)
[2021-10-16 16:11] LABS: CREATINE KINASE MB FRACTION < 1.0 ng/mL (0.5-3.6)
[2021-10-17] VITALS (8 sets, daily range): BP systolic 108–151; BP diastolic 67–80
[2021-10-17 00:29] LABS: CREATINE KINASE 196 IU/L (39-308)
[2021-10-17 00:30] LABS: CREATINE KINASE MB FRACTION < 1.0 ng/mL (0.5-3.6)
[2021-10-17] MEDS: HYDROMORPHONE HCL/PF 2MG/ML CPJ IV PRN ×2 (00:48→06:32)
[2021-10-17] MEDS: AMLODIPINE 10MG TABLET PO SCH (08:54)
[2021-10-17] MEDS: MORPHINE SULFATE 15MG TABLET SR PO SCH ×2 (08:55→20:25)
[2021-10-17] MEDS: ENOXAPARIN 40MG/0.4ML SYR SUBCUT SCH (08:55)
[2021-10-17] MEDS ORDERED: HYDROCODONE/ACETAMINOPHEN 5/325MG TABLET PO PRN (13:15)
== END 2021-10-17 22:30 | DRG 551 ==
LOC: ER 17:14 → MICUSO 10-14 00:55 → 6WST 10-15 00:09
PROVIDERS: ADMIT Hospitalist; ATTEND Hospitalist
DX: M48.061 Spinal stenosis, lumbar region without neurogenic claudication (principal); G82.50 Quadriplegia, unspecified; I69.354 Hemiplegia and hemiparesis following cerebral infarction affecting left non-dominant side; E44.1 Mild protein-calorie malnutrition; Z68.1 Body mass index [BMI] 19.9 or less, adult; M62.82 Rhabdomyolysis; R55 Syncope and collapse; G89.4 Chronic pain syndrome; I10 Essential (primary) hypertension; Z20.822 Contact with and (suspected) exposure to COVID-19; D64.9 Anemia, unspecified; M50.30 Other cervical disc degeneration, unspecified cervical region; M19.90 Unspecified osteoarthritis, unspecified site; R53.81 Other malaise; R26.9 Unspecified abnormalities of gait and mobility; Z86.005 Personal history of in-situ neoplasm of middle ear and respiratory system; Z68.20 Body mass index [BMI] 20.0-20.9, adult; Z87.440 Personal history of urinary (tract) infections; Z85.118 Personal history of other malignant neoplasm of bronchus and lung; Z79.899 Other long term (current) drug therapy; Z82.49 Family history of ischemic heart disease and other diseases of the circulatory system; Z79.891 Long term (current) use of opiate analgesic; Z92.21 Personal history of antineoplastic chemotherapy; W19.XXXA Unspecified fall, initial encounter; G62.9 Polyneuropathy, unspecified; M24.541 Contracture, right hand; Z98.890 Other specified postprocedural states
CPT/HCPCS: 36415; 71045; 72141; 72146; 72148; 80053; 81003; 82550; 82553; 83880; 84484; 85025; 86850; 86900; 87426; 93005; 93970; 97162; 97166; 97530; 97535; 99285; C1893; J1170; J1650; J2270; J2405; J7030; A4315

== ENCOUNTER 2021-10-18 18:35 | Inpatient (IN) | payer MEDICARE, MEDICAID ==
[~2021-10-18] VITALS: Ht 180.3 cm; Wt 66.8 kg
[2021-10-18] MEDS ORDERED: CEFTRIAXONE 1 G PREMIX 50 ML IV ONE (19:30)
[2021-10-18] MEDS ORDERED: SODIUM CHLORIDE 0.9% 1000ML BAG (SEPSIS BOLUS) IV ONE (19:30)
[2021-10-18 20:07] LABS: HEMATOCRIT. 45.3 % (42.0-52.0); HEMOGLOBIN. 15.1 g/dL (14.0-18.0); MEAN CORPUSCULAR HEMOGLOBIN 29.5 pg (28.0-32.0); MEAN CORPUSCULAR VOLUME 88.6 fL (80.0-94.0); MEAN PLATELET VOLUME 7.4 fl (7.4-10.4); PLATELET 386 x1000/uL (130-400); RED BLOOD CELL COUNT 5.12 mill/uL (4.7-6.1); RED CELL DISTRIBUTION WIDTH 14.7 % (11.6-14.6)
[2021-10-18 20:13] LABS: CHLORIDE 105 mEq/L (98-107)
[2021-10-18 20:18] LABS: INR 1.2; PROTHROMBIN TIME 12.7 sec (9.6-11.0)
[2021-10-18 20:32] LABS: PLATELET ESTIMATE NORMAL
[2021-10-18 20:38] LABS: CLARITY URINE CLEAR (CLEAR); COLOR URINE DARK YELLOW (YELLOW); KETONES URINE TRACE (NEGATIVE); LEUKOCYTE ESTERASE URINE TRACE (NEGATIVE); NITRITE URINE NEGATIVE (NEGATIVE); OCCULT BLOOD URINE NEGATIVE (NEGATIVE); PROTEIN URINE 1+ (NEGATIVE); SPECIFIC GRAVITY URINE 1.025 (1.005-1.030)
[2021-10-18] MEDS ORDERED: ACETAMINOPHEN 650MG SUPP PR ONE (21:00)
[2021-10-18] MEDS ORDERED: ETOMIDATE 2MG/ML 10ML VIAL IV ONE (22:30)
[2021-10-18] MEDS ORDERED: ROCURONIUM BROMIDE 10MG/ML VIAL 5ML IV ONE (22:30)
[2021-10-18] MEDS ORDERED: PROPOFOL 200MG/20ML VIAL IV ONE (22:30)
[2021-10-18] MEDS ORDERED: PROPOFOL 10MG/ML 100ML 100 ML IV ONE (22:30)
[2021-10-18] MEDS ORDERED: SUCCINYLCHOLINE CHLORIDE 200MG/10ML IV ONE (23:00)
[2021-10-19] MEDS ORDERED: ACETAMINOPHEN 650MG SUPP PR PRN (00:15)
[2021-10-19] MEDS ORDERED: IPRATROPIUM/ALBUTEROL 0.5-3(2.5)MG/3ML NEB NEB PRN (00:15)
[2021-10-19] MEDS ORDERED: ONDANSETRON HCL 4MG/2ML INJ IV PRN (00:15)
[2021-10-19] MEDS ORDERED: PIPERACILLIN/TAZOBACTAM 3.375 G in DEXTROSE 5% WATER 50 ML IV SCH (00:15)
[2021-10-19] MEDS ORDERED: ENOXAPARIN 40MG/0.4ML SYR SUBCUT SCH (00:15)
[2021-10-19 00:24] LABS: BG BASE EXCESS -3.7 mmol/L (-2.0-2.0); BG CARBOXYHEMOGLOBIN 0.3 % (0.5-1.5); BG DEOXYHEMOGLOBIN 0.3 % (0.0-5.0); BG FRACTION INSPIRED OXYGEN 100; BG HCO3 ACT 19.5 mmol/L (22.0-26.0); BG OXYGEN SATURATION 99.7 % (92.0-98.5); BG OXYHEMOGLOBIN 99.4 % (94.0-97.0); BG PCO2 30.4 mmHg (35.0-45.0); BG PH 7.424 (7.350-7.450); BG PO2 498.3 mmHg (75.0-100.0); BG TOTAL HEMOGLOBIN 14.2 g/dL (12.0-18.0); BG VENT MODE VENT - AC
[2021-10-19] MEDS ORDERED: VANCOMYCIN 1500MG in DEXTROSE 5% WATER 250ML IV NR ×2 (00:30→04:00)
[2021-10-19] MEDS: SODIUM CHLORIDE 0.9% 1,000 ML IV SCH ×2 (00:57→13:36)
[2021-10-19] MEDS ORDERED: PIPERACILLIN/TAZOBACTAM 3.375G in DEXT 5% WATER 50ML IV SCH (01:00)
[2021-10-19] MEDS: PANTOPRAZOLE SODIUM 40 MG/VIAL IV SCH ×2 (01:01→09:00)
[2021-10-19 03:49] LABS: MEAN CORPUSCULAR HEMOGLOBIN 29.3 pg (28.0-32.0); MEAN CORPUSCULAR VOLUME 92.1 fL (80.0-94.0); MEAN PLATELET VOLUME 7.2 fl (7.4-10.4); PLATELET 371 x1000/uL (130-400); RED BLOOD CELL COUNT 4.78 mill/uL (4.7-6.1); RED CELL DISTRIBUTION WIDTH 15.8 % (11.6-14.6)
[2021-10-19 03:51] LABS: CHLORIDE 111 mEq/L (98-107)
[2021-10-19 04:00] LABS: CREATINE KINASE 765 IU/L (39-308)
[2021-10-19 04:02] LABS: CREATINE KINASE MB FRACTION 12.2 ng/mL (0.5-3.6)
[2021-10-19] MEDS ORDERED: VANCOMYCIN 1 G PREMIX 200 ML IV SCH (06:30)
[2021-10-19] MEDS: PIPERACILLIN/TAZ 3.375G PREMIX 50 ML IV SCH ×2 (06:30→14:43)
[2021-10-19 07:04] LABS: PLATELET ESTIMATE NORMAL
[2021-10-19] MEDS: ENOXAPARIN 40MG/0.4ML SYR SUBCUT SCH (09:00)
[2021-10-19] MEDS ORDERED: MIDAZOLAM 100MG/100ML PMX 100 ML IV PRN (10:15)
[2021-10-19] MEDS ORDERED: FENTANYL CITRATE/PF 500 MCG in SODIUM CHLORIDE 0.9% 40 ML IV PRN (10:15)
[2021-10-19] MEDS: FENTANYL CITRATE 2,500 MCG in SODIUM CHLORIDE 0.9% 200 ML IV PRN (10:59)
[2021-10-19] MEDS ORDERED: GADOTERATE MEGLUMINE 5 MMOL/10 ML VIAL IV ONE (13:27)
[2021-10-19] MEDS ORDERED: PROPOFOL 10MG/ML 100ML 100 ML IV NR (16:15)
[2021-10-19] MEDS: VANCOMYCIN 750 MG PREMIX 150 ML IV SCH (18:20)
[2021-10-19] MEDS: IPRATROPIUM/ALBUTEROL 0.5-3(2.5)MG/3ML NEB HHN SCH (20:14)
[2021-10-19 22:21] VITALS: BP 142/89
[2021-10-19 22:30] VITALS: BP 133/87
[2021-10-19 22:45] VITALS: BP 143/85
[2021-10-19 23:00] VITALS: BP 135/81
[2021-10-19 23:30] VITALS: BP 102/69
[2021-10-19 23:45] VITALS: BP 110/67
[2021-10-19] MEDS ORDERED: MIDAZOLAM HCL 100 MG in SODIUM CHLORIDE 0.9% 80 ML IV PRN (23:45)
[2021-10-20] VITALS (49 sets, daily range): BP systolic 99–184; BP diastolic 60–94
[2021-10-20] MEDS: PIPERACILLIN/TAZ 3.375G PREMIX 50 ML IV SCH ×2 (00:25→06:51)
[2021-10-20] MEDS: IPRATROPIUM/ALBUTEROL 0.5-3(2.5)MG/3ML NEB HHN SCH ×4 (01:42→20:02)
[2021-10-20] MEDS: SODIUM CHLORIDE 0.9% 1,000 ML IV SCH ×2 (03:17→16:30)
[2021-10-20] MEDS ORDERED: HYDR-4001 MT (04:44)
[2021-10-20] MEDS ORDERED: TOPUD PO ×2 (04:44)
[2021-10-20] MEDS ORDERED: MOM MT (04:44)
[2021-10-20] MEDS ORDERED: CLON0.1T PO (04:44)
[2021-10-20] MEDS ORDERED: NA P230E RC (04:44)
[2021-10-20] MEDS ORDERED: HJ10 IJ (04:44)
[2021-10-20] MEDS ORDERED: BISA10SU62 RC (04:44)
[2021-10-20] MEDS ORDERED: ASCO-339 MT (04:44)
[2021-10-20] MEDS ORDERED: AMLO10TA80 PO (04:44)
[2021-10-20] MEDS ORDERED: ZINC1CAP2 PO (04:44)
[2021-10-20] MEDS ORDERED: ONDA4TAB50 MT (04:44)
[2021-10-20] MEDS ORDERED: HYDR2TAB4 MT (04:44)
[2021-10-20] MEDS: INSULIN LISPRO 100 UNITS/ML SUBCUT SCH ×3 (05:00→18:00)
[2021-10-20] MEDS: BLOOD SUGAR DIAGNOSTIC STRIP TEST SCH ×3 (05:00→18:00)
[2021-10-20] MEDS: VANCOMYCIN 750 MG PREMIX 150 ML IV SCH (05:14)
[2021-10-20 08:32] LABS: BG BASE EXCESS -2.7 mmol/L (-2.0-2.0); BG CARBOXYHEMOGLOBIN 0.2 % (0.5-1.5); BG FRACTION INSPIRED OXYGEN 50; BG HCO3 ACT 21.2 mmol/L (22.0-26.0); BG METHEMOGLOBIN 0.4 % (0.0-1.5); BG OXYHEMOGLOBIN 98.4 % (94.0-97.0); BG PCO2 34.2 mmHg (35.0-45.0); BG PH 7.411 (7.350-7.450); BG PO2 141.4 mmHg (75.0-100.0); BG SAMPLE SITE RIGHT RADIAL; BG TOTAL HEMOGLOBIN 12.1 g/dL (12.0-18.0); BG VENT MODE VENT - AC
[2021-10-20] MEDS: ENOXAPARIN 40MG/0.4ML SYR SUBCUT SCH (09:00)
[2021-10-20] MEDS: PANTOPRAZOLE SODIUM 40 MG/VIAL IV SCH (09:12)
[2021-10-20] MEDS ORDERED: PIPERACILLIN/TAZOBACTAM 3.375 G in DEXT 5% WATER 50 ML IV SCH (14:00)
[2021-10-20 15:02] LABS: BG BASE EXCESS -3.8 mmol/L (-2.0-2.0); BG CARBOXYHEMOGLOBIN 0.3 % (0.5-1.5); BG DEOXYHEMOGLOBIN 2.4 % (0.0-5.0); BG FRACTION INSPIRED OXYGEN 50; BG HCO3 ACT 20.2 mmol/L (22.0-26.0); BG METHEMOGLOBIN 0.5 % (0.0-1.5); BG OXYGEN SATURATION 97.6 % (92.0-98.5); BG OXYHEMOGLOBIN 96.8 % (94.0-97.0); BG PCO2 33.3 mmHg (35.0-45.0); BG PO2 102.1 mmHg (75.0-100.0); BG SAMPLE SITE RIGHT RADIAL; BG TOTAL HEMOGLOBIN 12.5 g/dL (12.0-18.0); BG VENT MODE VENT - SIMV
[2021-10-20 18:32] LABS: BG BASE EXCESS -1.8 mmol/L (-2.0-2.0); BG CARBOXYHEMOGLOBIN 0.1 % (0.5-1.5); BG DEOXYHEMOGLOBIN 3.6 % (0.0-5.0); BG FRACTION INSPIRED OXYGEN 50; BG HCO3 ACT 21.6 mmol/L (22.0-26.0); BG METHEMOGLOBIN 0.3 % (0.0-1.5); BG OXYGEN SATURATION 96.4 % (92.0-98.5); BG PCO2 32.7 mmHg (35.0-45.0); BG PH 7.438 (7.350-7.450); BG PO2 80.8 mmHg (75.0-100.0); BG SAMPLE SITE RIGHT RADIAL; BG TOTAL HEMOGLOBIN 12.4 g/dL (12.0-18.0); BG VENT MODE VENT - CPAP
[2021-10-20] MEDS: DIPHENHYDRAMINE 50MG/ML VIAL IV PRN (18:46)
[2021-10-21] VITALS (66 sets, daily range): BP systolic 112–222; BP diastolic 61–145
[2021-10-21] MEDS: IPRATROPIUM/ALBUTEROL 0.5-3(2.5)MG/3ML NEB HHN SCH ×4 (00:07→20:14)
[2021-10-21] MEDS: BLOOD SUGAR DIAGNOSTIC STRIP TEST SCH ×4 (00:42→18:06)
[2021-10-21] MEDS: SODIUM CHLORIDE 0.9% 1,000 ML IV SCH ×3 (05:35→20:45)
[2021-10-21] MEDS: INSULIN LISPRO 100 UNITS/ML SUBCUT SCH ×4 (06:00→18:00)
[2021-10-21 06:22] LABS: HEMATOCRIT. 35.9 % (42.0-52.0); HEMOGLOBIN. 11.6 g/dL (14.0-18.0); MEAN CORPUSCULAR HEMOGLOBIN 28.9 pg (28.0-32.0); MEAN CORPUSCULAR VOLUME 89.7 fL (80.0-94.0); MEAN PLATELET VOLUME 7.8 fl (7.4-10.4); PLATELET 344 x1000/uL (130-400); RED CELL DISTRIBUTION WIDTH 15.3 % (11.6-14.6)
[2021-10-21 06:38] LABS: CHLORIDE 111 mEq/L (98-107)
[2021-10-21 06:47] LABS: VANCOMYCIN TROUGH 4.5 ug/mL (5.0-10.0)
[2021-10-21] MEDS: PANTOPRAZOLE SODIUM 40 MG/VIAL IV SCH (08:15)
[2021-10-21] MEDS: DIPHENHYDRAMINE 50MG/ML VIAL IV PRN ×2 (08:15→20:55)
[2021-10-21] MEDS: FENTANYL CITRATE 2,500 MCG in SODIUM CHLORIDE 0.9% 200 ML IV PRN (08:17)
[2021-10-21 09:14] LABS: BG BASE EXCESS -0.6 mmol/L (-2.0-2.0); BG CARBOXYHEMOGLOBIN 0.3 % (0.5-1.5); BG DEOXYHEMOGLOBIN 2.5 % (0.0-5.0); BG FRACTION INSPIRED OXYGEN 50; BG HCO3 ACT 22.7 mmol/L (22.0-26.0); BG METHEMOGLOBIN 0.2 % (0.0-1.5); BG OXYGEN SATURATION 97.5 % (92.0-98.5); BG PCO2 33.3 mmHg (35.0-45.0); BG PH 7.452 (7.350-7.450); BG PO2 92.9 mmHg (75.0-100.0); BG SAMPLE SITE RIGHT RADIAL; BG TOTAL HEMOGLOBIN 12.3 g/dL (12.0-18.0); BG TOTAL RESPIRATORY RATE 29 b/min; BG VENT MODE VENT - CPAP
[2021-10-21 14:06] LABS: PLATELET ESTIMATE NORMAL
[2021-10-22] VITALS (36 sets, daily range): BP systolic 114–223; BP diastolic 68–126
[2021-10-22] MEDS: IPRATROPIUM/ALBUTEROL 0.5-3(2.5)MG/3ML NEB HHN SCH ×4 (00:17→21:17)
[2021-10-22] MEDS: MEROPENEM 1,000 MG in SODIUM CHLORIDE 0.9% 100 ML IV SCH ×4 (01:58→22:20)
[2021-10-22] MEDS: FENTANYL CITRATE 2,500 MCG in SODIUM CHLORIDE 0.9% 200 ML IV PRN (05:50)
[2021-10-22 06:13] LABS: CHLORIDE 111 mEq/L (98-107)
[2021-10-22 06:24] LABS: HEMATOCRIT. 35.4 % (42.0-52.0); HEMOGLOBIN. 11.7 g/dL (14.0-18.0); MEAN CORPUSCULAR HEMOGLOBIN 29.6 pg (28.0-32.0); MEAN CORPUSCULAR VOLUME 89.8 fL (80.0-94.0); MEAN PLATELET VOLUME 7.9 fl (7.4-10.4); PLATELET 348 x1000/uL (130-400); RED BLOOD CELL COUNT 3.95 mill/uL (4.7-6.1); RED CELL DISTRIBUTION WIDTH 15.1 % (11.6-14.6)
[2021-10-22] MEDS: PANTOPRAZOLE SODIUM 40 MG/VIAL IV SCH (08:30)
[2021-10-22 08:31] LABS: BG SAMPLE SITE RIGHT RADIAL; BG TIDAL VOLUME(mL) 500 mL; BG VENT MODE VENT/SIMV; BG VENT RATE 6 set
[2021-10-22] MEDS: SODIUM CHLORIDE 0.9% 1,000 ML IV SCH ×2 (08:31→21:35)
[2021-10-22 08:32] LABS: BG BASE EXCESS 0.9 mmol/L (-2.0-2.0); BG CARBOXYHEMOGLOBIN 0.6 % (0.5-1.5); BG HCO3 ACT 26.1 mmol/L (22.0-26.0); BG METHEMOGLOBIN 0.2 % (0.0-1.5); BG OXYHEMOGLOBIN 96.2 % (94.0-97.0); BG PCO2 43.7 mmHg (35.0-45.0); BG PH 7.394 (7.350-7.450); BG PO2 86.4 mmHg (75.0-100.0); BG TOTAL HEMOGLOBIN 12.7 g/dL (12.0-18.0)
[2021-10-22] MEDS ORDERED: LIDOCAINE HCL 1% 20ML VIAL (Pyxis) INJ ONE (08:49)
[2021-10-22] MEDS: BLOOD SUGAR DIAGNOSTIC STRIP TEST SCH ×3 (12:00→18:49)
[2021-10-22] MEDS: INSULIN LISPRO 100 UNITS/ML SUBCUT SCH ×3 (13:07→18:00)
[2021-10-22 14:20] LABS: BG BASE EXCESS 0.9 mmol/L (-2.0-2.0); BG CARBOXYHEMOGLOBIN 0.3 % (0.5-1.5); BG DEOXYHEMOGLOBIN 5.4 % (0.0-5.0); BG METHEMOGLOBIN 0.1 % (0.0-1.5); BG OXYGEN SATURATION 94.6 % (92.0-98.5); BG OXYHEMOGLOBIN 94.2 % (94.0-97.0); BG PCO2 43.5 mmHg (35.0-45.0); BG PH 7.395 (7.350-7.450); BG PO2 71.5 mmHg (75.0-100.0); BG SAMPLE SITE RIGHT RADIAL; BG TOTAL HEMOGLOBIN 13.8 g/dL (12.0-18.0); BG VENT MODE VENT - CPAP
[2021-10-22 17:12] LABS: PLATELET ESTIMATE NORMAL
[2021-10-22] MEDS ORDERED: POTASSIUM CHLORIDE 20MEQ TABLET SR PO NR (23:30)
[2021-10-23] VITALS (48 sets, daily range): BP systolic 108–186; BP diastolic 68–127
[2021-10-23] MEDS: IPRATROPIUM/ALBUTEROL 0.5-3(2.5)MG/3ML NEB HHN SCH ×3 (00:49→21:01)
[2021-10-23] MEDS ORDERED: POTASSIUM CHLORIDE 20MEQ/PACKET NG NR (01:15)
[2021-10-23] MEDS: ACETAMINOPHEN 650MG/20.3ML UDC PO PRN ×3 (01:38→22:45)
[2021-10-23] MEDS: INSULIN LISPRO 100 UNITS/ML SUBCUT SCH ×4 (05:55→17:45)
[2021-10-23] MEDS: BLOOD SUGAR DIAGNOSTIC STRIP TEST SCH ×4 (05:55→17:45)
[2021-10-23] MEDS: MEROPENEM 1,000 MG in SODIUM CHLORIDE 0.9% 100 ML IV SCH ×3 (05:55→21:02)
[2021-10-23 06:09] LABS: HEMATOCRIT. 34.2 % (42.0-52.0); HEMOGLOBIN. 11.6 g/dL (14.0-18.0); MEAN CORPUSCULAR HEMOGLOBIN 30.3 pg (28.0-32.0); MEAN CORPUSCULAR VOLUME 89.8 fL (80.0-94.0); PLATELET 359 x1000/uL (130-400); RED BLOOD CELL COUNT 3.81 mill/uL (4.7-6.1); RED CELL DISTRIBUTION WIDTH 15.3 % (11.6-14.6)
[2021-10-23 06:13] LABS: CHLORIDE 111 mEq/L (98-107)
[2021-10-23] MEDS ORDERED: HYDRALAZINE 20MG/ML VIAL IV PRN (08:45)
[2021-10-23] MEDS: PANTOPRAZOLE SODIUM 40 MG/VIAL IV SCH (09:01)
[2021-10-23] MEDS: AMLODIPINE 5MG TABLET PO SCH ×2 (09:01→21:01)
[2021-10-23 09:05] LABS: BG BASE EXCESS 1.5 mmol/L (-2.0-2.0); BG CARBOXYHEMOGLOBIN 0.3 % (0.5-1.5); BG DEOXYHEMOGLOBIN 0.7 % (0.0-5.0); BG FRACTION INSPIRED OXYGEN 98; BG HCO3 ACT 25.8 mmol/L (22.0-26.0); BG METHEMOGLOBIN 0.3 % (0.0-1.5); BG OXYGEN SATURATION 99.3 % (92.0-98.5); BG OXYHEMOGLOBIN 98.7 % (94.0-97.0); BG PCO2 39.9 mmHg (35.0-45.0); BG PH 7.429 (7.350-7.450); BG PO2 183.2 mmHg (75.0-100.0); BG SAMPLE SITE RIGHT RADIAL; BG TOTAL HEMOGLOBIN 13.1 g/dL (12.0-18.0); BG VENT MODE COOL AEROSOL
[2021-10-23] MEDS ORDERED: MAGNESIUM 2 G PREMIX 50 ML IV SCH (10:00)
[2021-10-23] MEDS: SODIUM CHLORIDE 0.9% 1,000 ML IV SCH (10:06)
[2021-10-23] MEDS ORDERED: MORPHINE SULFATE 2 MG/ML CPJ (NOT FOR IM USE) IV SCH (12:15)
[2021-10-23] MEDS: ACETYLCYSTEINE 100MG/ML 10% VIAL 4ML INH SCH (13:46)
[2021-10-23 16:23] LABS: PLATELET ESTIMATE NORMAL
[2021-10-23] MEDS ORDERED: DILTIAZEM HCL 30MG TABLET PO SCH (18:00)
[2021-10-24] VITALS (42 sets, daily range): BP systolic 129–165; BP diastolic 75–115
[2021-10-24] MEDS: BLOOD SUGAR DIAGNOSTIC STRIP TEST SCH ×5 (00:23→23:11)
[2021-10-24] MEDS: SODIUM CHLORIDE 0.9% 1,000 ML IV SCH ×2 (00:25→12:53)
[2021-10-24] MEDS: ACETYLCYSTEINE 100MG/ML 10% VIAL 4ML INH SCH ×4 (00:54→20:49)
[2021-10-24] MEDS: IPRATROPIUM/ALBUTEROL 0.5-3(2.5)MG/3ML NEB HHN SCH ×4 (00:54→20:49)
[2021-10-24] MEDS: MEROPENEM 1,000 MG in SODIUM CHLORIDE 0.9% 100 ML IV SCH ×3 (05:38→21:50)
[2021-10-24] MEDS: INSULIN LISPRO 100 UNITS/ML SUBCUT SCH ×5 (05:39→23:12)
[2021-10-24 06:10] LABS: CHLORIDE 113 mEq/L (98-107)
[2021-10-24 06:23] LABS: HEMATOCRIT. 37.6 % (42.0-52.0); HEMOGLOBIN. 12.4 g/dL (14.0-18.0); MEAN CORPUSCULAR HEMOGLOBIN 29.6 pg (28.0-32.0); MEAN CORPUSCULAR VOLUME 89.9 fL (80.0-94.0); MEAN PLATELET VOLUME 8.2 fl (7.4-10.4); PLATELET 429 x1000/uL (130-400); RED BLOOD CELL COUNT 4.18 mill/uL (4.7-6.1); RED CELL DISTRIBUTION WIDTH 15.1 % (11.6-14.6)
[2021-10-24 08:04] LABS: BG BASE EXCESS 3.4 mmol/L (-2.0-2.0); BG CARBOXYHEMOGLOBIN 0.3 % (0.5-1.5); BG DEOXYHEMOGLOBIN 0.2 % (0.0-5.0); BG HCO3 ACT 26.3 mmol/L (22.0-26.0); BG METHEMOGLOBIN 0.5 % (0.0-1.5); BG OXYGEN SATURATION 99.8 % (92.0-98.5); BG PCO2 34.4 mmHg (35.0-45.0); BG PH 7.502 (7.350-7.450); BG PO2 338.6 mmHg (75.0-100.0); BG SAMPLE SITE RIGHT RADIAL; BG TOTAL HEMOGLOBIN 12.8 g/dL (12.0-18.0); BG VENT MODE MASK - NRB
[2021-10-24 08:04] LABS: PLATELET ESTIMATE SLIGHTLY INCREASED
[2021-10-24] MEDS: PANTOPRAZOLE SODIUM 40 MG/VIAL IV SCH (09:00)
[2021-10-24] MEDS ORDERED: POTASSIUM CHLORIDE 20MEQ/PACKET PO SCH (10:45)
[2021-10-24] MEDS: DILTIAZEM HCL 30MG TABLET PO SCH ×3 (12:54→23:11)
[2021-10-24] MEDS ORDERED: POTASSIUM CHLORIDE 20MEQ TABLET SR PO SCH (14:30)
[2021-10-24] MEDS: ACETAMINOPHEN 650MG/20.3ML UDC PO PRN (18:16)
[2021-10-25] VITALS (48 sets, daily range): BP systolic 121–157; BP diastolic 70–109
[2021-10-25] MEDS: IPRATROPIUM/ALBUTEROL 0.5-3(2.5)MG/3ML NEB HHN SCH ×7 (00:06→23:42)
[2021-10-25] MEDS: SODIUM CHLORIDE 0.9% 1,000 ML IV SCH (02:59)
[2021-10-25] MEDS: MEROPENEM 1,000 MG in SODIUM CHLORIDE 0.9% 100 ML IV SCH ×3 (05:38→22:19)
[2021-10-25] MEDS: DILTIAZEM HCL 30MG TABLET PO SCH ×3 (05:38→18:28)
[2021-10-25 05:50] LABS: CHLORIDE 114 mEq/L (98-107)
[2021-10-25] MEDS: BLOOD SUGAR DIAGNOSTIC STRIP TEST SCH ×3 (05:50→18:27)
[2021-10-25] MEDS: INSULIN LISPRO 100 UNITS/ML SUBCUT SCH ×3 (05:51→18:00)
[2021-10-25 06:04] LABS: PHOSPHORUS 1.5 mg/dL (2.5-4.9)
[2021-10-25 06:06] LABS: HEMATOCRIT. 37.1 % (42.0-52.0); HEMOGLOBIN. 12.3 g/dL (14.0-18.0); MEAN CORPUSCULAR HEMOGLOBIN 29.3 pg (28.0-32.0); MEAN CORPUSCULAR VOLUME 88.2 fL (80.0-94.0); RED CELL DISTRIBUTION WIDTH 15.2 % (11.6-14.6)
[2021-10-25] MEDS ORDERED: POTASSIUM CHLORIDE 20MEQ/PACKET PO NR (07:45)
[2021-10-25] MEDS ORDERED: POTASSIUM CHLORIDE INJ 40 MEQ in DEXT 5% WATER 250 ML IV ONE (07:45)
[2021-10-25] MEDS: ACETYLCYSTEINE 100MG/ML 10% VIAL 4ML INH SCH ×3 (08:22→23:42)
[2021-10-25] MEDS: ASCORBIC ACID 500 MG TABLET PO SCH (08:40)
[2021-10-25] MEDS: ZINC SULFATE 220 MG ( 50 ) CAPSULE PO SCH (08:40)
[2021-10-25] MEDS: PANTOPRAZOLE SODIUM 40 MG/VIAL IV SCH (08:40)
[2021-10-25 08:54] LABS: MEAN PLATELET VOLUME 8.3 fl (7.4-10.4); PLATELET ESTIMATE INCREASED
[2021-10-25 08:55] LABS: PLATELET 465 x1000/uL (130-400)
[2021-10-25 09:08] LABS: BG BASE EXCESS 5.3 mmol/L (-2.0-2.0); BG CARBOXYHEMOGLOBIN 0.4 % (0.5-1.5); BG DEOXYHEMOGLOBIN 5.5 % (0.0-5.0); BG FRACTION INSPIRED OXYGEN 28; BG HCO3 ACT 27.4 mmol/L (22.0-26.0); BG METHEMOGLOBIN 0.3 % (0.0-1.5); BG OXYGEN SATURATION 94.5 % (92.0-98.5); BG OXYHEMOGLOBIN 93.8 % (94.0-97.0); BG PCO2 32.2 mmHg (35.0-45.0); BG PH 7.547 (7.350-7.450); BG PO2 66.3 mmHg (75.0-100.0); BG SAMPLE SITE RIGHT RADIAL; BG TOTAL HEMOGLOBIN 13.3 g/dL (12.0-18.0); BG VENT MODE NASAL CANNULA
[2021-10-25] MEDS ORDERED: KCL 20MEQ/100ML PREMIX 100 ML IV SCH (10:00)
[2021-10-25] MEDS ORDERED: POTASSIUM PHOS,M-BASIC-D-BASIC 15 MMOL in DEXT 5% WATER 245 ML IV NR (12:00)
[2021-10-25] MEDS: SODIUM CHLORIDE 0.45% 1,000 ML IV SCH (12:04)
[2021-10-26] VITALS (69 sets, daily range): BP systolic 101–160; BP diastolic 63–104
[2021-10-26] MEDS: SODIUM CHLORIDE 0.45% 1,000 ML IV SCH ×2 (00:07→13:10)
[2021-10-26] MEDS: DILTIAZEM HCL 30MG TABLET PO SCH ×4 (00:07→17:54)
[2021-10-26] MEDS: BLOOD SUGAR DIAGNOSTIC STRIP TEST SCH ×4 (00:13→17:54)
[2021-10-26] MEDS: ACETAMINOPHEN 650MG/20.3ML UDC PO PRN ×2 (01:05→19:13)
[2021-10-26] MEDS: IPRATROPIUM/ALBUTEROL 0.5-3(2.5)MG/3ML NEB HHN SCH ×5 (04:02→20:08)
[2021-10-26] MEDS: MEROPENEM 1,000 MG in SODIUM CHLORIDE 0.9% 100 ML IV SCH ×3 (05:56→22:25)
[2021-10-26] MEDS: INSULIN LISPRO 100 UNITS/ML SUBCUT SCH ×4 (06:00→17:54)
[2021-10-26 06:23] LABS: HEMATOCRIT. 39.6 % (42.0-52.0); HEMOGLOBIN. 12.6 g/dL (14.0-18.0); MEAN CORPUSCULAR HEMOGLOBIN 28.3 pg (28.0-32.0); MEAN CORPUSCULAR VOLUME 89.3 fL (80.0-94.0); PLATELET 458 x1000/uL (130-400); RED BLOOD CELL COUNT 4.44 mill/uL (4.7-6.1); RED CELL DISTRIBUTION WIDTH 15.3 % (11.6-14.6)
[2021-10-26 06:46] LABS: CHLORIDE 112 mEq/L (98-107)
[2021-10-26] MEDS: ZINC SULFATE 220 MG ( 50 ) CAPSULE PO SCH (08:14)
[2021-10-26] MEDS: ASCORBIC ACID 500 MG TABLET PO SCH (08:14)
[2021-10-26] MEDS: PANTOPRAZOLE SODIUM 40 MG/VIAL IV SCH (08:14)
[2021-10-26 09:41] LABS: BG BASE EXCESS 3.9 mmol/L (-2.0-2.0); BG DEOXYHEMOGLOBIN 3.7 % (0.0-5.0); BG FRACTION INSPIRED OXYGEN 28; BG HCO3 ACT 26.7 mmol/L (22.0-26.0); BG OXYGEN SATURATION 96.3 % (92.0-98.5); BG OXYHEMOGLOBIN 96.3 % (94.0-97.0); BG PCO2 34.5 mmHg (35.0-45.0); BG PH 7.507 (7.350-7.450); BG PO2 79.9 mmHg (75.0-100.0); BG SAMPLE SITE RIGHT RADIAL; BG TOTAL HEMOGLOBIN 13.5 g/dL (12.0-18.0); BG VENT MODE NASAL CANNULA
[2021-10-26] MEDS: ACETYLCYSTEINE 100MG/ML 10% VIAL 4ML INH SCH ×2 (09:52→16:20)
[2021-10-26] MEDS ORDERED: POTASSIUM CHLORIDE 20MEQ TABLET SR PO NR (10:45)
[2021-10-26 13:52] LABS: PLATELET ESTIMATE SLIGHTLY INCREASED
[2021-10-27] VITALS (78 sets, daily range): BP systolic 109–178; BP diastolic 58–108
[2021-10-27] MEDS: IPRATROPIUM/ALBUTEROL 0.5-3(2.5)MG/3ML NEB HHN SCH ×6 (00:26→22:37)
[2021-10-27] MEDS: ACETYLCYSTEINE 100MG/ML 10% VIAL 4ML INH SCH ×3 (00:27→15:40)
[2021-10-27] MEDS: BLOOD SUGAR DIAGNOSTIC STRIP TEST SCH ×4 (00:49→18:09)
[2021-10-27] MEDS: DILTIAZEM HCL 30MG TABLET PO SCH ×4 (00:57→17:50)
[2021-10-27] MEDS: INSULIN LISPRO 100 UNITS/ML SUBCUT SCH ×4 (06:00→18:00)
[2021-10-27] MEDS: SODIUM CHLORIDE 0.45% 1,000 ML IV SCH ×3 (06:19→23:18)
[2021-10-27] MEDS: ACETAMINOPHEN 650MG/20.3ML UDC PO PRN ×3 (06:22→20:16)
[2021-10-27] MEDS ORDERED: POTASSIUM CHLORIDE 20MEQ/PACKET PO NR (09:15)
[2021-10-27] MEDS: ZINC SULFATE 220 MG ( 50 ) CAPSULE PO SCH (09:22)
[2021-10-27] MEDS: PANTOPRAZOLE SODIUM 40 MG/VIAL IV SCH (09:22)
[2021-10-27] MEDS: ASCORBIC ACID 500 MG TABLET PO SCH (09:22)
[2021-10-27 16:25] LABS: CHLORIDE 106 mEq/L (98-107)
[2021-10-28] VITALS (80 sets, daily range): BP systolic 109–192; BP diastolic 64–116
[2021-10-28] MEDS: BLOOD SUGAR DIAGNOSTIC STRIP TEST SCH ×4 (00:19→18:14)
[2021-10-28] MEDS: DILTIAZEM HCL 30MG TABLET PO SCH ×4 (00:27→18:14)
[2021-10-28] MEDS: IPRATROPIUM/ALBUTEROL 0.5-3(2.5)MG/3ML NEB HHN SCH ×5 (02:14→17:13)
[2021-10-28] MEDS: ACETYLCYSTEINE 100MG/ML 10% VIAL 4ML INH SCH ×3 (02:15→17:14)
[2021-10-28] MEDS: INSULIN LISPRO 100 UNITS/ML SUBCUT SCH ×4 (06:00→18:00)
[2021-10-28 06:12] LABS: HEMATOCRIT. 38.4 % (42.0-52.0); HEMOGLOBIN. 12.8 g/dL (14.0-18.0); MEAN CORPUSCULAR HEMOGLOBIN 29.6 pg (28.0-32.0); MEAN CORPUSCULAR VOLUME 88.3 fL (80.0-94.0); MEAN PLATELET VOLUME 8.4 fl (7.4-10.4); PLATELET 312 x1000/uL (130-400); RED BLOOD CELL COUNT 4.34 mill/uL (4.7-6.1); RED CELL DISTRIBUTION WIDTH 15.2 % (11.6-14.6)
[2021-10-28] MEDS: PANTOPRAZOLE SODIUM 40 MG/VIAL IV SCH (08:15)
[2021-10-28] MEDS: ASCORBIC ACID 500 MG TABLET PO SCH (08:15)
[2021-10-28] MEDS: ZINC SULFATE 220 MG ( 50 ) CAPSULE PO SCH (08:15)
[2021-10-28] MEDS ORDERED: BISACODYL 10MG SUPP PR NR (12:00)
[2021-10-28 13:58] LABS: PLATELET ESTIMATE NORMAL
[2021-10-28] MEDS: SODIUM CHLORIDE 0.45% 1,000 ML IV SCH (18:19)
[2021-10-28] MEDS: ACETAMINOPHEN 650MG/20.3ML UDC PO PRN (20:03)
[2021-10-29] VITALS (38 sets, daily range): BP systolic 93–137; BP diastolic 60–87
[2021-10-29] MEDS: IPRATROPIUM/ALBUTEROL 0.5-3(2.5)MG/3ML NEB HHN SCH ×6 (01:06→22:48)
[2021-10-29] MEDS: DILTIAZEM HCL 30MG TABLET PO SCH ×5 (01:38→23:15)
[2021-10-29] MEDS: INSULIN LISPRO 100 UNITS/ML SUBCUT SCH ×5 (06:00→23:31)
[2021-10-29 06:04] LABS: CHLORIDE 100 mEq/L (98-107)
[2021-10-29] MEDS: BLOOD SUGAR DIAGNOSTIC STRIP TEST SCH ×5 (06:17→23:13)
[2021-10-29 06:31] LABS: HEMATOCRIT. 38.2 % (42.0-52.0); HEMOGLOBIN. 13.2 g/dL (14.0-18.0); MEAN CORPUSCULAR HEMOGLOBIN 30.3 pg (28.0-32.0); MEAN CORPUSCULAR VOLUME 88.1 fL (80.0-94.0); MEAN PLATELET VOLUME 8.6 fl (7.4-10.4); PLATELET 362 x1000/uL (130-400); RED BLOOD CELL COUNT 4.34 mill/uL (4.7-6.1)
[2021-10-29] MEDS: SODIUM CHLORIDE 0.45% 1,000 ML IV SCH (07:59)
[2021-10-29] MEDS: ZINC SULFATE 220 MG ( 50 ) CAPSULE PO SCH (08:00)
[2021-10-29] MEDS: PANTOPRAZOLE SODIUM 40 MG/VIAL IV SCH (08:00)
[2021-10-29] MEDS: ASCORBIC ACID 500 MG TABLET PO SCH (08:00)
[2021-10-29] MEDS: SODIUM CHLORIDE 0.9% 1,000 ML IV SCH ×2 (08:49→22:57)
[2021-10-29] MEDS ORDERED: BISACODYL 10MG SUPP PR PRN (09:00)
[2021-10-29 10:52] LABS: PLATELET ESTIMATE NORMAL
[2021-10-29] MEDS: ACETAMINOPHEN 650MG/20.3ML UDC PO PRN (21:08)
[2021-10-30] VITALS (77 sets, daily range): BP systolic 55–167; BP diastolic 16–105
[2021-10-30] MEDS: IPRATROPIUM/ALBUTEROL 0.5-3(2.5)MG/3ML NEB HHN SCH ×3 (00:34→09:34)
[2021-10-30] MEDS: ACETAMINOPHEN 650MG/20.3ML UDC PO PRN ×2 (04:12→14:02)
[2021-10-30 05:28] LABS: CHLORIDE 103 mEq/L (98-107)
[2021-10-30] MEDS: INSULIN LISPRO 100 UNITS/ML SUBCUT SCH ×3 (06:00→18:31)
[2021-10-30] MEDS: BLOOD SUGAR DIAGNOSTIC STRIP TEST SCH ×3 (06:05→18:30)
[2021-10-30] MEDS: DILTIAZEM HCL 30MG TABLET PO SCH ×2 (06:09→11:16)
[2021-10-30 06:14] LABS: HEMATOCRIT. 37.3 % (42.0-52.0); HEMOGLOBIN. 12.7 g/dL (14.0-18.0); MEAN CORPUSCULAR VOLUME 87.9 fL (80.0-94.0); MEAN PLATELET VOLUME 8.8 fl (7.4-10.4); PLATELET 329 x1000/uL (130-400); RED BLOOD CELL COUNT 4.24 mill/uL (4.7-6.1); RED CELL DISTRIBUTION WIDTH 15.1 % (11.6-14.6)
[2021-10-30] MEDS: ASCORBIC ACID 500 MG TABLET PO SCH (08:58)
[2021-10-30] MEDS: PANTOPRAZOLE SODIUM 40 MG/VIAL IV SCH (08:58)
[2021-10-30] MEDS: ZINC SULFATE 220 MG ( 50 ) CAPSULE PO SCH (08:58)
[2021-10-30] MEDS: SODIUM CHLORIDE 0.9% 1,000 ML IV SCH (11:16)
[2021-10-30] MEDS ORDERED: IPRATROPIUM BROMIDE (0.02%) 0.5MG/2.5ML NEB HHN PRN (12:15)
[2021-10-30] MEDS ORDERED: SCOPOLAMINE HYDROBROMIDE PATCH 72HR TD SCH (13:00)
[2021-10-30] MEDS: IPRATROPIUM BROMIDE (0.02%) 0.5MG/2.5ML NEB HHN SCH ×4 (13:06→23:58)
[2021-10-30 13:17] LABS: BG BASE EXCESS 2.4 mmol/L (-2.0-2.0); BG CARBOXYHEMOGLOBIN 0.3 % (0.5-1.5); BG DEOXYHEMOGLOBIN 5.3 % (0.0-5.0); BG FRACTION INSPIRED OXYGEN 99.8; BG HCO3 ACT 23.6 mmol/L (22.0-26.0); BG METHEMOGLOBIN 0.3 % (0.0-1.5); BG OXYGEN SATURATION 94.7 % (92.0-98.5); BG OXYHEMOGLOBIN 94.1 % (94.0-97.0); BG PCO2 27.5 mmHg (35.0-45.0); BG PH 7.552 (7.350-7.450); BG PO2 65.4 mmHg (75.0-100.0); BG SAMPLE SITE RIGHT RADIAL; BG TOTAL HEMOGLOBIN 13.5 g/dL (12.0-18.0); BG VENT MODE MASK - NRB
[2021-10-30] MEDS ORDERED: ETOMIDATE 2MG/ML 10ML VIAL IV ONE (13:17)
[2021-10-30] MEDS ORDERED: VECURONIUM BROMIDE 10 MG/VIAL IV ONE (13:17)
[2021-10-30 16:03] LABS: PLATELET ESTIMATE NORMAL
[2021-10-30] MEDS ORDERED: PROPOFOL 10MG/ML 100ML 100 ML IV PRN (16:15)
[2021-10-30] MEDS ORDERED: PHENYLEPHRINE 50 MG in DEXT 5% WATER 245 ML IV PRN (16:30)
[2021-10-30] MEDS: FENTANYL CITRATE/PF 2,500 MCG in SODIUM CHLORIDE 0.9% 200 ML IV PRN (17:30)
[2021-10-30] MEDS: DILTIAZEM HCL 60MG TABLET PO SCH (17:40)
[2021-10-30 17:56] LABS: BG BASE EXCESS -3.3 mmol/L (-2.0-2.0); BG CARBOXYHEMOGLOBIN 0.3 % (0.5-1.5); BG FRACTION INSPIRED OXYGEN 100; BG HCO3 ACT 20.7 mmol/L (22.0-26.0); BG METHEMOGLOBIN 0.1 % (0.0-1.5); BG OXYHEMOGLOBIN 95.6 % (94.0-97.0); BG PCO2 34.5 mmHg (35.0-45.0); BG PH 7.397 (7.350-7.450); BG PO2 84.6 mmHg (75.0-100.0); BG SAMPLE SITE LEFT RADIAL; BG TOTAL HEMOGLOBIN 14.4 g/dL (12.0-18.0); BG VENT MODE VENT - AC
[2021-10-30] MEDS: MEROPENEM 1,000 MG in SODIUM CHLORIDE 0.9% 100 ML IV SCH (19:50)
[2021-10-30] MEDS ORDERED: SODIUM CHLORIDE 0.9% 500 ML IV NR (20:00)
[2021-10-30] MEDS: NOREPINEPHRINE 32 MG in DEXT 5% WATER 218 ML IV PRN (20:10)
[2021-10-30] MEDS: MIDAZOLAM HCL 100 MG in SODIUM CHLORIDE 0.9% 80 ML IV PRN (20:20)
[2021-10-30 20:54] LABS: BG CARBOXYHEMOGLOBIN 0.3 % (0.5-1.5); BG DEOXYHEMOGLOBIN 12.9 % (0.0-5.0); BG FRACTION INSPIRED OXYGEN 100; BG HCO3 ACT 19.2 mmol/L (22.0-26.0); BG METHEMOGLOBIN 0.3 % (0.0-1.5); BG OXYHEMOGLOBIN 86.5 % (94.0-97.0); BG PCO2 41.4 mmHg (35.0-45.0); BG PH 7.285 (7.350-7.450); BG PO2 59.1 mmHg (75.0-100.0); BG SAMPLE SITE RIGHT RADIAL; BG TOTAL HEMOGLOBIN 13.7 g/dL (12.0-18.0); BG TOTAL RESPIRATORY RATE 26 b/min; BG VENT MODE VENT - AC
[2021-10-30] MEDS: PHENYLEPHRINE 100 MG in DEXT 5% WATER 240 ML IV PRN (21:32)
[2021-10-30] MEDS: VASOPRESSIN 20 UNIT in SODIUM CHLORIDE 0.9% 99 ML IV PRN (22:35)
[2021-10-30 22:38] LABS: BG CARBOXYHEMOGLOBIN 0.4 % (0.5-1.5); BG DEOXYHEMOGLOBIN 20.4 % (0.0-5.0); BG FRACTION INSPIRED OXYGEN 100; BG HCO3 ACT 18.2 mmol/L (22.0-26.0); BG METHEMOGLOBIN 0.2 % (0.0-1.5); BG OXYGEN SATURATION 79.5 % (92.0-98.5); BG PCO2 43.9 mmHg (35.0-45.0); BG PH 7.235 (7.350-7.450); BG PO2 50.2 mmHg (75.0-100.0); BG SAMPLE SITE RIGHT RADIAL; BG TOTAL HEMOGLOBIN 13.6 g/dL (12.0-18.0); BG TOTAL RESPIRATORY RATE 22 b/min; BG VENT MODE VENT - AC
[2021-10-30] MEDS ORDERED: SODIUM BICARBONATE 8.4% 1 MEQ/ML 50ML SYR IV SCH (23:45)
[2021-10-30] MEDS: ACETYLCYSTEINE 100MG/ML 10% VIAL 4ML INH SCH (23:58)
[2021-10-31] VITALS (99 sets, daily range): BP systolic 27–204; BP diastolic 12–111
[2021-10-31] MEDS ORDERED: VANCOMYCIN 1 G PREMIX 200 ML IV NR
[2021-10-31] MEDS: SODIUM CHLORIDE 0.9% 1,000 ML IV SCH (00:17)
[2021-10-31] MEDS: MEROPENEM 1,000 MG in SODIUM CHLORIDE 0.9% 100 ML IV SCH ×2 (02:43→13:15)
[2021-10-31] MEDS: IPRATROPIUM BROMIDE (0.02%) 0.5MG/2.5ML NEB HHN SCH ×4 (03:55→20:20)
[2021-10-31] MEDS: PHENYLEPHRINE 100 MG in DEXT 5% WATER 240 ML IV PRN ×3 (04:46→22:07)
[2021-10-31] MEDS: NOREPINEPHRINE 32 MG in DEXT 5% WATER 218 ML IV PRN ×3 (04:47→23:46)
[2021-10-31] MEDS: VASOPRESSIN 20 UNIT in SODIUM CHLORIDE 0.9% 99 ML IV PRN ×3 (04:48→21:43)
[2021-10-31] MEDS: FENTANYL CITRATE/PF 2,500 MCG in SODIUM CHLORIDE 0.9% 200 ML IV PRN (04:49)
[2021-10-31] MEDS: MIDAZOLAM HCL 100 MG in SODIUM CHLORIDE 0.9% 80 ML IV PRN (04:49)
[2021-10-31] MEDS: INSULIN LISPRO 100 UNITS/ML SUBCUT SCH ×5 (05:05→23:48)
[2021-10-31] MEDS: BLOOD SUGAR DIAGNOSTIC STRIP TEST SCH ×5 (05:05→23:37)
[2021-10-31] MEDS: DILTIAZEM HCL 60MG TABLET PO SCH ×5 (05:05→23:26)
[2021-10-31] MEDS: DEXTROSE 50% WATER 50ML SYRINGE IV PRN ×2 (05:05→11:55)
[2021-10-31] MEDS: ACETYLCYSTEINE 100MG/ML 10% VIAL 4ML INH SCH ×2 (07:48→15:35)
[2021-10-31] MEDS: DOPAMINE 400MG/250ML PREMIX 250 ML IV PRN ×3 (08:35→18:40)
[2021-10-31 09:00] LABS: BG BASE EXCESS -17.5 mmol/L (-2.0-2.0); BG CARBOXYHEMOGLOBIN 0.2 % (0.5-1.5); BG DEOXYHEMOGLOBIN 3.5 % (0.0-5.0); BG FRACTION INSPIRED OXYGEN 100; BG HCO3 ACT 13.8 mmol/L (22.0-26.0); BG METHEMOGLOBIN 0.3 % (0.0-1.5); BG OXYGEN SATURATION 96.5 % (92.0-98.5); BG PH 6.995 (7.350-7.450); BG PO2 119.5 mmHg (75.0-100.0); BG SAMPLE SITE LEFT RADIAL; BG TOTAL HEMOGLOBIN 12.1 g/dL (12.0-18.0); BG VENT MODE VENT - AC
[2021-10-31] MEDS: ASCORBIC ACID 500 MG TABLET PO SCH (09:00)
[2021-10-31] MEDS: ZINC SULFATE 220 MG ( 50 ) CAPSULE PO SCH (09:00)
[2021-10-31] MEDS ORDERED: VANCOMYCIN 750 MG PREMIX 150 ML IV SCH (09:00)
[2021-10-31] MEDS ORDERED: SODIUM BICARBONATE 8.4% 1 MEQ/ML 50ML SYR IV NR ×3 (09:15→20:15)
[2021-10-31] MEDS: EPINEPHRINE 10 MG in SODIUM CHLORIDE 0.9% 240 ML IV PRN ×7 (09:19→22:44)
[2021-10-31] MEDS: PANTOPRAZOLE SODIUM 40 MG/VIAL IV SCH (09:23)
[2021-10-31] MEDS: SODIUM BICARBONATE 150 MEQ in DEXTROSE 5% WATER 1,000 ML IV SCH (09:53)
[2021-10-31] MEDS ORDERED: HYDROCORTISONE SOD SUCCINATE 100 MG/2 ML VIAL IV NR (10:30)
[2021-10-31 11:11] LABS: HEMATOCRIT. 38.6 % (42.0-52.0); HEMOGLOBIN. 12.1 g/dL (14.0-18.0); MEAN CORPUSCULAR HEMOGLOBIN 29.3 pg (28.0-32.0); MEAN CORPUSCULAR VOLUME 93.7 fL (80.0-94.0); RED BLOOD CELL COUNT 4.12 mill/uL (4.7-6.1); RED CELL DISTRIBUTION WIDTH 16.1 % (11.6-14.6)
[2021-10-31] MEDS: DEXT 5%/0.45% NACL 1000ML 1,000 ML IV SCH (11:56)
[2021-10-31 12:12] LABS: BG BASE EXCESS -15.1 mmol/L (-2.0-2.0); BG CARBOXYHEMOGLOBIN 0.3 % (0.5-1.5); BG FRACTION INSPIRED OXYGEN 100; BG HCO3 ACT 13.9 mmol/L (22.0-26.0); BG METHEMOGLOBIN 0.3 % (0.0-1.5); BG OXYGEN SATURATION 86.9 % (92.0-98.5); BG OXYHEMOGLOBIN 86.4 % (94.0-97.0); BG PCO2 44.4 mmHg (35.0-45.0); BG PH 7.113 (7.350-7.450); BG PO2 65.7 mmHg (75.0-100.0); BG SAMPLE SITE LEFT BRACHIAL; BG TOTAL HEMOGLOBIN 13.2 g/dL (12.0-18.0); BG VENT MODE VENT - AC
[2021-10-31] MEDS: HYDROCORTISONE SOD SUCCINATE 100 MG/2 ML VIAL IV SCH ×2 (13:15→21:42)
[2021-10-31] MEDS ORDERED: SODIUM POLYSTYRENE SULFONATE 15 G/60 ML BOT PO SCH ×2 (15:00→23:30)
[2021-10-31] MEDS ORDERED: DEXT 5% WATER 500 ML IV ONE (15:00)
[2021-10-31 15:52] LABS: MEAN PLATELET VOLUME 8.9 fl (7.4-10.4); PLATELET ESTIMATE SLIGHTLY DECREASED
[2021-10-31 15:53] LABS: PLATELET 125 x1000/uL (130-400)
[2021-10-31 17:41] LABS: BG BASE EXCESS -21.5 mmol/L (-2.0-2.0); BG CARBOXYHEMOGLOBIN 0.3 % (0.5-1.5); BG DEOXYHEMOGLOBIN 80.4 % (0.0-5.0); BG HCO3 ACT 12.8 mmol/L (22.0-26.0); BG METHEMOGLOBIN 1.9 % (0.0-1.5); BG OXYGEN SATURATION 17.8 % (92.0-98.5); BG OXYHEMOGLOBIN 17.4 % (94.0-97.0); BG PCO2 77.5 mmHg (35.0-45.0); BG PH 6.836 (7.350-7.450); BG PO2 < 30.3 mmHg (75.0-100.0); BG TOTAL HEMOGLOBIN 11.6 g/dL (12.0-18.0)
[2021-10-31 19:58] LABS: BG BASE EXCESS -25.8 mmol/L (-2.0-2.0); BG CARBOXYHEMOGLOBIN 0.2 % (0.5-1.5); BG DEOXYHEMOGLOBIN 19.9 % (0.0-5.0); BG FRACTION INSPIRED OXYGEN 100; BG METHEMOGLOBIN 0.3 % (0.0-1.5); BG OXYHEMOGLOBIN 79.6 % (94.0-97.0); BG PCO2 39.3 mmHg (35.0-45.0); BG PH 6.866 (7.350-7.450); BG PO2 62.9 mmHg (75.0-100.0); BG SAMPLE SITE RIGHT FEMORAL; BG TOTAL HEMOGLOBIN 11.5 g/dL (12.0-18.0); BG VENT MODE VENT - AC
[2021-10-31] MEDS ORDERED: VANCOMYCIN 1 G PREMIX 200 ML IV SCH (21:00)
[2021-10-31] MEDS ORDERED: MEROPENEM 1,000 MG in SODIUM CHLORIDE 0.9% 100 ML IV SCH (23:00)
[2021-11-01] VITALS (23 sets, daily range): BP systolic 49–121; BP diastolic 24–73
[2021-11-01] MEDS: DOPAMINE 400MG/250ML PREMIX 250 ML IV PRN ×2 (00:02→05:47)
[2021-11-01] MEDS: ACETYLCYSTEINE 100MG/ML 10% VIAL 4ML INH SCH (00:06)
[2021-11-01] MEDS: IPRATROPIUM BROMIDE (0.02%) 0.5MG/2.5ML NEB HHN SCH ×2 (00:06→04:05)
[2021-11-01] MEDS: EPINEPHRINE 10 MG in SODIUM CHLORIDE 0.9% 240 ML IV PRN ×3 (00:59→05:33)
[2021-11-01] MEDS: SODIUM BICARBONATE 150 MEQ in DEXTROSE 5% WATER 1,000 ML IV SCH (01:54)
[2021-11-01] MEDS: DEXT 5%/0.45% NACL 1000ML 1,000 ML IV SCH (01:54)
[2021-11-01] MEDS: DILTIAZEM HCL 60MG TABLET PO SCH (05:22)
[2021-11-01] MEDS: BLOOD SUGAR DIAGNOSTIC STRIP TEST SCH (05:23)
[2021-11-01] MEDS: HYDROCORTISONE SOD SUCCINATE 100 MG/2 ML VIAL IV SCH (05:32)
[2021-11-01] MEDS: INSULIN LISPRO 100 UNITS/ML SUBCUT SCH (05:34)
== END 2021-11-01 06:15 | DRG 871 ==
LOC: ER 18:35 → EDBEDREQTM 22:01 → EDBEDREQ 22:01 → EDBEDREQSVC 22:35 → EDBEDREQTM 22:35 → EDBEDREQ 22:35 → ENRESERV 10-19 20:06 → MICUNO 10-19 20:20 → MICUSO 10-20 01:55 → MICUNO 10-22 23:18 → 5EST 10-29 11:05 → CVICU 10-30 19:01
PROVIDERS: ADMIT Internal Medicine; ATTEND Internal Medicine
PROC: 0BH17EZ Insertion of Endotracheal Airway into Trachea, Via Natural or Artificial Opening (ICD-10-PCS; principal; 2021-10-18)
PROC: 5A1945Z Respiratory Ventilation, 24-96 Consecutive Hours (ICD-10-PCS; 2021-10-18)
PROC: 05H433Z Insertion of Infusion Device into Left Innominate Vein, Percutaneous Approach (ICD-10-PCS; 2021-10-22)
PROC: B54NZZA Ultrasonography of Left Upper Extremity Veins, Guidance (ICD-10-PCS; 2021-10-22)
PROC: 4A10X4Z Monitoring of Central Nervous Electrical Activity, External Approach (ICD-10-PCS; 2021-10-24)
PROC: 0BH17EZ Insertion of Endotracheal Airway into Trachea, Via Natural or Artificial Opening (ICD-10-PCS; 2021-10-30)
PROC: 5A1945Z Respiratory Ventilation, 24-96 Consecutive Hours (ICD-10-PCS; 2021-10-30)
PROC: 5A09357 Assistance with Respiratory Ventilation, Less than 24 Consecutive Hours, Continuous Positive Airway Pressure (ICD-10-PCS; 2021-10-30)
PROC: 5A12012 Performance of Cardiac Output, Single, Manual (ICD-10-PCS; 2021-10-31)
PROC: 5A12012 Performance of Cardiac Output, Single, Manual (ICD-10-PCS; 2021-11-01)
DX: A41.89 Other specified sepsis (principal); G93.6 Cerebral edema; I61.9 Nontraumatic intracerebral hemorrhage, unspecified; J96.01 Acute respiratory failure with hypoxia; J69.0 Pneumonitis due to inhalation of food and vomit; I63.9 Cerebral infarction, unspecified; R65.21 Severe sepsis with septic shock; N17.0 Acute kidney failure with tubular necrosis; G93.49 Other encephalopathy; E87.0 Hyperosmolality and hypernatremia; J44.0 Chronic obstructive pulmonary disease with (acute) lower respiratory infection; J44.1 Chronic obstructive pulmonary disease with (acute) exacerbation; I69.354 Hemiplegia and hemiparesis following cerebral infarction affecting left non-dominant side; F03.90 Unspecified dementia, unspecified severity, without behavioral disturbance, psychotic disturbance, mood disturbance, and anxiety; I10 Essential (primary) hypertension; I16.0 Hypertensive urgency; I48.91 Unspecified atrial fibrillation; L89.156 Pressure-induced deep tissue damage of sacral region; S80.211A Abrasion, right knee, initial encounter; X58.XXXA Exposure to other specified factors, initial encounter; R73.9 Hyperglycemia, unspecified; F41.9 Anxiety disorder, unspecified; E87.6 Hypokalemia; E16.2 Hypoglycemia, unspecified; M19.90 Unspecified osteoarthritis, unspecified site; Z20.822 Contact with and (suspected) exposure to COVID-19; D64.9 Anemia, unspecified; I46.9 Cardiac arrest, cause unspecified; E87.5 Hyperkalemia; Z87.440 Personal history of urinary (tract) infections; Z85.118 Personal history of other malignant neoplasm of bronchus and lung; Z79.899 Other long term (current) drug therapy; Z85.9 Personal history of malignant neoplasm, unspecified; Y93.89 Activity, other specified; Y92.89 Other specified places as the place of occurrence of the external cause; Y99.8 Other external cause status; Z68.20 Body mass index [BMI] 20.0-20.9, adult; R00.0 Tachycardia, unspecified
CPT/HCPCS: 36415; 36600; 70553; 71045; 76937; 80048; 80053; 80202; 81003; 82040; 82375; 82550; 82553; 82805; 82962; 83036; 83605; 83735; 84100; 84134; 84145; 84443; 84478; 84484; 85025; 87070; 87077; 87186; 87426; 92950; 93005; 93306; 93880; 93970; 94002; 94003; 94640; 94660; 94667; 95816; 97161; 99291; A6261; A9577; C1725; C9113; C9803; J0360; J0696; J1200; J1265; J1650; J1720; J1815; J2185; J2250; J2270; J2370; J2543; J2704; J3010; J3370; J3475; J3480; J3490; J7030; J7040; J7050; J7060; J7070; J7608; U0003; U0005; A4315